=== PATIENT | female | born 1995 | race Caucasian/White ===

== ENCOUNTER 2017-08-09 02:18 | Inpatient (IN) | payer OTHER ==
[2017-08-09] MEDS ORDERED: LACTATED RINGERS 1,000 ML IV ONE (02:32)
[2017-08-09 02:56] LABS: Bilirubin,Urine NEG (Negative); Blood,Urine SM (Negative); Ketones,Urine NEG (Negative); Leukocyte Esterase,Urine NEG (Negative); Mucus,Urine FEW /HPF; Nitrite,Urine NEG (Negative); Protein,Urine <15 mg/dL mg/dL (Negative); Urobilinogen,Urine < 2.0 mg/dL (<2.0)
--- NOTE | 2017-08-09 03:09 | History and Physical Report ---
History of Present Illness Date of examination: 08/09/17 Chief complaint: Painless vaginal bleeding History of present illness: 21-year-old at 26+4 weeks presents with above complaint, she is a patient of [facility]. Patient speaks Niuean only, history with the help of motor vehicle parts interpreter. Essential history is sudden onset of painless vaginal bleeding ~ 30 minutes to an hour ago, no contractions no prior sexual intercourse of any kind. 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 denies: smoking, alcohol abuse, prescription drug abuse, IV drug use - Obstetrical History Expected Date of Delivery: 11/11/17 Actual Gestation: 26 Week(s) 4 Day(s) : 1 Para: 0 Medications and Allergies Allergies Allergy/AdvReac Type Severity Reaction Status Date / Time No Known Allergies Allergy Verified 08/09/17 02:29 Active Meds: Active Medications Lactated Ringer's (Lactated Ringers) 1,000 mls @ 999 mls/hr IV BOLUS ONE Stop: 08/09/17 03:32 Last Admin: 08/09/17 02:45 Dose: 999 mls/hr Review of Systems Constitutional: no fever, no chills, no malaise Cardiovascular: no chest pain, no orthopnea, no palpitations, no syncope, no lightheadedness, no shortness of breath, no dyspnea on exertion, no high blood pressure Respiratory: no shortness of breath, no dyspnea on exertion Gastrointestinal: no abdominal pain, no nausea, no vomiting, no heartburn, no indigestion Genitourinary: vaginal bleeding, no vaginal discharge, no leakage of fluid - Vital Signs Vital signs: Vital Signs Pulse Pulse Ox 85 99 08/09/17 02:25 08/09/17 02:25 Temp Pulse Resp BP Pulse Ox 98.2 F 97 H 16 102/66 99 08/09/17 02:48 08/09/17 02:44 08/09/17 02:48 08/09/17 02:44 08/09/17 02:40 - Physical Exam Cardiovascular: Regular rate, Normal S1, Normal S2 Lungs: Positive: Clear to auscultation, Normal air movement Abdomen: Positive: normal appearance, soft. Negative: distention, tenderness, guarding, rigidity Genitourinary (Female): Positive: normal external genitalia Uterus: Positive: enlarged. Negative: tender Adnexa: both: normal Extremities: Positive: normal Results All other labs normal. Assessment and Plan A: 21-year-old at 26+4 with painless vaginal bleeding -Cat 1 tracing -No active bleeding noted on cursory exam -No contractions P: -Will obtain imaging studies -Obtain labs -IV access -Disposition after results available including possible steroid and magnesium - Patient Problems (1) 26 weeks gestation of Current Visit: Yes Status: Acute (2) Vaginal bleeding in Current Visit: Yes Status: Acute
[2017-08-09] MEDS ORDERED: MAGNESIUM SULFATE 4GM/100ML 4 GM/100 ML BAG IV ONE (03:29)
--- NOTE | 2017-08-09 03:37 | Event Note ---
Date: 08/09/17 Ultrasound exam completed. No placental abnormalities noted. Growth scan shows infant at 28+4 weeks gestation with an EFW 1273 g. Cervical length is 3.5 cm and infant in cephalic presentation. DARCI is 18.7 BPP is 8 out of 8 On cervical exam, patient still has significant amount of blood clots in the vaginal vault. I could not assess the cervical opening due to this In view of above, have decided to admit the patient, start Celestone course and magnesium neuro protection. Will place consult to MFM and audio visual equipment rental clerk.
[2017-08-09] MEDS: MAGNESIUM SULFATE 40GM/1000ML 40 GM/1,000 ML BAG IV SCH ×2 (04:22→23:29)
[2017-08-09 04:24] LABS: Hematocrit 31.6 % (30.3-42.9); Hemoglobin 10.7 gm/dl (10.1-14.3); Mean Corpuscular HGB Conc 34 % (30-34); Mean Corpuscular Hemoglobin 30 pg (28-32); Mean Corpuscular Volume 89 fl (79-97); Platelet Count 358 K/mm3 (140-440); Red Blood Count 3.57 M/mm3 (3.65-5.03); Red Cell Distribution Width 13.3 % (13.2-15.2); White Blood Count 10.4 K/mm3 (4.5-11.0)
[2017-08-09] MEDS: LACTATED RINGERS 1,000 ML IV SCH ×2 (04:25→19:35)
[2017-08-09] MEDS: CELESTONE SOLUSPAN IM SCH (04:34)
[2017-08-09 04:39] LABS: Urine Drugs of Abuse Note Disclamer
[2017-08-09] MEDS ORDERED: ZOFRAN IV PRN (05:42)
[2017-08-09] MEDS ORDERED: MYLICON PO PRN (05:42)
[2017-08-09 06:28] LABS: Anion Gap 18 mmol/L; BUN/Creatinine Ratio 10; Blood Urea Nitrogen 3 mg/dL (7-17); Calcium 8.8 mg/dL (8.4-10.2); Carbon Dioxide 23 mmol/L (22-30); Chloride 103.9 mmol/L (98-107); Glucose 92 mg/dL (65-100); Potassium 4.6 mmol/L (3.6-5.0); Sodium 140 mmol/L (137-145)
[2017-08-09] MEDS: TYLENOL PO PRN ×2 (06:31→23:31)
--- NOTE | 2017-08-09 08:03 | Ultrasound Report ---
ULTRASOUND BIOPHYSICAL PROFILE: History: well being Technique: Transabdominal ultrasound with Doppler interrogation. 2 - breathing movements 2 - movements 2 - posture and tone 2 - Qualitative amniotic fluid volume 8 - TOTAL SCORE OF POSSIBLE 8 Heart Rate (bpm) 133
--- NOTE | 2017-08-09 08:06 | Ultrasound Report ---
OB ULTRASOUND History: well-being, evaluate amniotic fluid and placenta Technique: Transabdominal ultrasound with Doppler interrogation. Gestation: Single Position: Cephalic Amniotic Fluid: Normal DARCI = 18.7 cm Placenta: Left lateral Placental Grade: 1 Heart Rate: 140 BPM Cervical length: 3.5 cm (Normal > 3 cm) NEUROANATOMY VISUALIZED: Choroid Plexus Cisterna Magnum Cerebellum Lateral Ventricle ANATOMY VISUALIZED: Stomach Kidneys Bladder Diaphragm 4 Chamber Heart Heart 3 Vessel Cord Abd. Cord Insert SPINE VISUALIZED: Longitudinal Transverse BPD: 7.1 cm = 28 w 4 d HC: 25.7 cm = 28 w 0 d AC: 25.0 cm = 29 w 2 d FL: 5.3 cm = 28 w 2 d HC/AC Ratio: 1.03 Cephalic Index: 83 Estimated Weight: 1273 grams LMP: Uncertain Clinical age = w d EDC: US Gest. Age = 28 w 4 d EDC: 10/28/17 Impression: No acute abnormality detected.
--- NOTE | 2017-08-09 09:03 | Progress Note ---
Subjective - Subjective Date of service: 08/09/17 Principal diagnosis: vaginal bleeding at 26 weeks Interval history: Patient is a 21-year-old at 26+4 weeks who was admitted for painless vaginal bleeding. She is a patient of [facility]. Patient speaks Setswana only. As per the patient, the bleeding started suddenly last night about an hour before her presentation to the hospital. She denies any contractions, fluid leakage, or prior sexual intercourse. She was started on Magnesium and steroid. This AM, she denies any bleeding or pain. Vitals: T98.5F, HR 100, BP100/60, RR 20 Abd: soft, NT, gravid. Uterus: non tender. Pelvic: deferred. FHT: 140's bpm Sonogram: normal placenta, no previa. labs H/H: 10.7/31.6 A/P: SIuP at 26 weeks and 4 days with painless vaginal bleeding. Pt is stable. FHT: CAT 1 for gest age. Will continue Mg sulfate and next steroid dose tomorrow. Contine FHT and toco monitoring. Monitor for vaginal bleeding. APA consult today. Objective - Vital Signs Vital Signs: Vital Signs - 12hr 08/09/17 08/09/17 08/09/17 02:25 02:30 02:35 Temperature Pulse Rate 85 85 90 Respiratory Rate Blood Pressure Blood Pressure [Right] O2 Sat by Pulse 99 97 98 Oximetry 08/09/17 08/09/17 08/09/17 02:40 02:44 02:48 Temperature 98.2 F Pulse Rate 93 H 97 H Respiratory 16 Rate Blood Pressure 102/66 Blood Pressure [Right] O2 Sat by Pulse 99 Oximetry 08/09/17 08/09/17 08/09/17 03:08 03:13 03:18 Temperature Pulse Rate 86 81 85 Respiratory Rate Blood Pressure Blood Pressure [Right] O2 Sat by Pulse 97 98 99 Oximetry 08/09/17 08/09/17 08/09/17 03:23 03:28 03:34 Temperature Pulse Rate 82 89 85 Respiratory Rate Blood Pressure Blood Pressure [Right] O2 Sat by Pulse 98 97 99 Oximetry 08/09/17 08/09/17 08/09/17 03:39 04:04 04:09 Temperature Pulse Rate 83 88 96 H Respiratory Rate Blood Pressure 108/68 110/71 Blood Pressure [Right] O2 Sat by Pulse 97 Oximetry 08/09/17 08/09/17 08/09/17 04:11 04:14 04:19 Temperature 99.0 F Pulse Rate 100 H 106 H Respiratory 18 Rate Blood Pressure 112/69 119/66 Blood Pressure [Right] O2 Sat by Pulse Oximetry 08/09/17 08/09/17 08/09/17 04:24 04:29 04:34 Temperature Pulse Rate 100 H 97 H 93 H Respiratory Rate Blood Pressure 111/64 112/67 107/66 Blood Pressure [Right] O2 Sat by Pulse Oximetry 08/09/17 08/09/17 08/09/17 05:22 05:27 05:32 Temperature Pulse Rate 92 H 95 H 96 H Respiratory Rate Blood Pressure Blood Pressure [Right] O2 Sat by Pulse 97 97 97 Oximetry 08/09/17 08/09/17 08/09/17 05:37 05:38 05:42 Temperature Pulse Rate 97 H 93 H 94 H Respiratory Rate Blood Pressure 105/62 Blood Pressure [Right] O2 Sat by Pulse 98 97 Oximetry 08/09/17 08/09/17 08/09/17 05:47 05:52 05:57 Temperature Pulse Rate 91 H 101 H 93 H Respiratory Rate Blood Pressure Blood Pressure [Right] O2 Sat by Pulse 98 97 97 Oximetry 08/09/17 08/09/17 08/09/17 06:02 06:07 06:12 Temperature Pulse Rate 100 H 92 H 91 H Respiratory Rate Blood Pressure Blood Pressure [Right] O2 Sat by Pulse 97 97 97 Oximetry 08/09/17 08/09/17 08/09/17 06:17 06:22 06:27 Temperature Pulse Rate 86 95 H 97 H Respiratory Rate Blood Pressure Blood Pressure [Right] O2 Sat by Pulse 96 97 97 Oximetry 08/09/17 08/09/17 08/09/17 06:31 06:32 06:37 Temperature Pulse Rate 92 H 92 H Respiratory 18 Rate Blood Pressure Blood Pressure [Right] O2 Sat by Pulse 98 97 Oximetry 08/09/17 08/09/17 08/09/17 06:38 06:42 06:47 Temperature Pulse Rate 93 H 94 H 95 H Respiratory Rate Blood Pressure 102/63 Blood Pressure [Right] O2 Sat by Pulse 97 97 Oximetry 08/09/17 08/09/17 08/09/17 06:52 06:57 07:02 Temperature Pulse Rate 95 H 96 H 93 H Respiratory Rate Blood Pressure Blood Pressure [Right] O2 Sat by Pulse 97 96 96 Oximetry 08/09/17 08/09/17 08/09/17 07:07 07:12 07:17 Temperature Pulse Rate 99 H 96 H 98 H Respiratory Rate Blood Pressure Blood Pressure [Right] O2 Sat by Pulse 97 96 96 Oximetry 08/09/17 08/09/17 08/09/17 07:22 07:27 07:32 Temperature Pulse Rate 103 H 97 H 97 H Respiratory Rate Blood Pressure Blood Pressure [Right] O2 Sat by Pulse 96 96 97 Oximetry 08/09/17 08/09/17 08/09/17 07:37 07:38 07:42 Temperature Pulse Rate 98 H 102 H 97 H Respiratory Rate Blood Pressure 100/56 Blood Pressure [Right] O2 Sat by Pulse 96 96 Oximetry 08/09/17 08/09/17 08/09/17 07:47 07:52 07:55 Temperature 98.5 F Pulse Rate 98 H 97 H 94 H Respiratory 14 Rate Blood Pressure Blood Pressure 100/60 [Right] O2 Sat by Pulse 96 96 96 Oximetry 08/09/17 08/09/17 08/09/17 07:57 07:58 08:02 Temperature Pulse Rate 101 H 103 H 97 H Respiratory Rate Blood Pressure 100/60 Blood Pressure [Right] O2 Sat by Pulse 97 96 Oximetry 08/09/17 08/09/17 08/09/17 08:07 08:12 08:17 Temperature Pulse Rate 98 H 100 H 100 H Respiratory Rate Blood Pressure Blood Pressure [Right] O2 Sat by Pulse 96 96 97 Oximetry 08/09/17 08/09/17 08/09/17 08:22 08:27 08:32 Temperature Pulse Rate 104 H 101 H 102 H Respiratory Rate Blood Pressure Blood Pressure [Right] O2 Sat by Pulse 97 96 97 Oximetry 08/09/17 08/09/17 08/09/17 08:37 08:38 08:42 Temperature Pulse Rate 101 H 93 H 97 H Respiratory Rate Blood Pressure 103/62 Blood Pressure [Right] O2 Sat by Pulse 97 97 Oximetry 08/09/17 08/09/17 08/09/17 08:47 08:52 08:57 Temperature Pulse Rate 102 H 98 H 112 H Respiratory Rate Blood Pressure Blood Pressure [Right] O2 Sat by Pulse 95 96 97 Oximetry 08/09/17 09:02 Temperature Pulse Rate 100 H Respiratory Rate Blood Pressure Blood Pressure [Right] O2 Sat by Pulse 97 Oximetry - Labs Labs: Abnormal Labs 08/09/17 08/09/17 08/09/17 02:45 02:45 05:12 RBC 3.57 L BUN 3 L Creatinine 0.3 L Magnesium 1.50 L 08/09/17 05:12 RBC BUN Creatinine Magnesium 4.10 H Laboratory Results - last 24 hr 08/09/17 08/09/17 08/09/17 02:35 02:45 02:45 WBC 10.4 RBC 3.57 L Hgb 10.7 Hct 31.6 MCV 89 MCH 30 MCHC 34 RDW 13.3 Plt Count 358 Sodium Potassium Chloride Carbon Dioxide Anion Gap BUN Creatinine Estimated GFR BUN/Creatinine Ratio Glucose Gest Glucose Tolerance Calcium Magnesium Urine Color Yellow Urine Turbidity Clear Urine pH 6.0 Ur Specific [place] 1.009 Urine Protein <15 mg/dl Urine Glucose (UA) Neg Urine Ketones Neg Urine Blood Sm Urine Nitrite Neg Urine Bilirubin Neg Urine Urobilinogen < 2.0 Ur Leukocyte Esterase Neg Urine WBC (Auto) 3.0 Urine RBC (Auto) 1.0 U Epithel Cells (Auto) 1.0 Amorphous Crystals Few Urine Mucus Few Urine Opiates Screen Urine Methadone Screen Ur Barbiturates Screen Ur Phencyclidine Scrn Ur Amphetamines Screen U Benzodiazepines Scrn Urine Cocaine Screen U Marijuana (THC) Screen Drugs of Abuse Note Blood Type B POSITIVE 08/09/17 08/09/17 08/09/17 02:45 03:42 04:25 WBC RBC Hgb Hct MCV MCH MCHC RDW Plt Count Sodium Potassium Chloride Carbon Dioxide Anion Gap BUN Creatinine Estimated GFR BUN/Creatinine Ratio Glucose Gest Glucose Tolerance Calcium Magnesium 1.50 L Urine Color Urine Turbidity Urine pH Ur Specific [place] Urine Protein Urine Glucose (UA) Urine Ketones Urine Blood Urine Nitrite Urine Bilirubin Urine Urobilinogen Ur Leukocyte Esterase Urine WBC (Auto) Urine RBC (Auto) U Epithel Cells (Auto) Amorphous Crystals Urine Mucus Urine Opiates Screen Presumptive negative Urine Methadone Screen Presumptive negative Ur Barbiturates Screen Presumptive negative Ur Phencyclidine Scrn Presumptive negative Ur Amphetamines Screen Presumptive negative U Benzodiazepines Scrn Presumptive negative Urine Cocaine Screen Presumptive negative U Marijuana (THC) Screen Presumptive negative Drugs of Abuse Note Disclamer Blood Type 08/09/17 08/09/17 05:12 05:12 WBC RBC Hgb Hct MCV MCH MCHC RDW Plt Count Sodium 140 Potassium 4.6 Chloride 103.9 Carbon Dioxide 23 Anion Gap 18 BUN 3 L Creatinine 0.3 L Estimated GFR > 60 BUN/Creatinine Ratio 10 Glucose 92 Gest Glucose Tolerance Calcium 8.8 Magnesium 4.10 H Urine Color Urine Turbidity Urine pH Ur Specific [place] Urine Protein Urine Glucose (UA) Urine Ketones Urine Blood Urine Nitrite Urine Bilirubin Urine Urobilinogen Ur Leukocyte Esterase Urine WBC (Auto) Urine RBC (Auto) U Epithel Cells (Auto) Amorphous Crystals Urine Mucus Urine Opiates Screen Urine Methadone Screen Ur Barbiturates Screen Ur Phencyclidine Scrn Ur Amphetamines Screen U Benzodiazepines Scrn Urine Cocaine Screen U Marijuana (THC) Screen Drugs of Abuse Note Blood Type
[2017-08-09] MEDS ORDERED: CELESTONE SOLUSPAN IM SCH (10:00)
[2017-08-09] MEDS: PRENATAL VITAMIN PO SCH (10:06)
--- NOTE | 2017-08-09 12:01 | Consultation ---
Addendum entered and electronically signed by KARISSA TAMAYO NP 08/09/17 12:34: Language Line utilizied Addendum entered and electronically signed by KARISSA TAMAYO NP 08/09/17 12:34: Original Note: History of Present Illness Reason for consult: other (Patient is at 26.4 weeks with JONI of 11/11/17. Patient was admitted with vaginal bleeding this am . Reported suden onset of painless vaginal bleeding. Denies contractions , coitus, and vaginal coitus . Reports positive movement. In addition patient denies recent vaginal bleeding . 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, gonorrhea, hepatitis B, hepatitis C, herpes, HIV , syphilis, trichomonas - Obstetrical History : 1 Medications and Allergies Allergies Allergy/AdvReac Type Severity Reaction Status Date / Time No Known Allergies Allergy Verified 08/09/17 02:29 Home Medications Medication Instructions Recorded Confirmed Last Taken Type Vit-Fe Fumar-FA [ 1 tab PO QDAY 08/09/17 08/09/17 Unknown History Vitamin] Active Meds: Active Medications Acetaminophen (Tylenol) 650 mg PO Q4H PRN PRN Reason: Pain MILD(1-3)/Fever >100.5/MORENO Last Admin: 08/09/17 06:31 Dose: 650 mg Betamethasone Acet/Betameth SodPhos (Celestone Soluspan) 12 mg IM Q24H ANALI Stop: 08/10/17 04:04 Last Admin: 08/09/17 04:34 Dose: 12 mg Docusate Sodium (Colace) 100 mg PO Q12H PRN PRN Reason: Constipation Lactated Ringer's (Lactated Ringers) 1,000 mls @ 125 mls/hr IV DIRECT ANALI Last Admin: 08/09/17 04:25 Dose: 75 mls/hr Magnesium Sulfate (Magnesium Sulfate 40gm/1000ml) 40 gm in 1,000 mls @ 50 mls/ hr IV TITR ANALI PRN Reason: 2 GM/HR Last Admin: 08/09/17 04:22 Dose: 2 gm/hr, 50 mls/hr Multivitamins/Iron/Calcium ( Vitamin) 1 each PO QDAY ANALI Last Admin: 08/09/17 10:06 Dose: 1 each Ondansetron HCl (Zofran) 4 mg IV Q6H PRN PRN Reason: Nausea And Vomiting Simethicone (Mylicon) 80 mg PO Q6H PRN PRN Reason: Gas pain Review of Systems Constitutional: no fever Eyes: deferred Ears, nose, mouth and throat: deferred Cardiovascular: no rapid/irregular heart beat, no syncope, no lightheadedness, no shortness of breath Respiratory: no shortness of breath Gastrointestinal: no abdominal pain, no indigestion Genitourinary: no vaginal bleeding (no recent compliants of vaginal bleeding ), no vaginal discharge, no leakage of fluid, no pelvic pain, no genital sores, no contractions Rectal Exam: deferred Integumentary: no rash Neurological: no headaches Hematologic/Lymphatic: no easy bleeding - Vital Signs Vital signs: Vital Signs Pulse Pulse Ox 85 99 08/09/17 02:25 08/09/17 02:25 Temp Pulse Resp BP Pulse Ox 98.5 F 101 H 14 104/65 97 08/09/17 07:55 08/09/17 11:57 08/09/17 07:55 08/09/17 11:38 08/09/17 11:57 - Physical Exam Breasts: Positive: deferred Cardiovascular: Regular rate Lungs: Positive: Normal air movement Abdomen: Negative: tenderness, guarding Genitourinary (Female): Positive: other (hernández @ BS + urine output ) Cervix: Positive: other (deferred vaginal exam ) Uterus: Positive: other (gravid). Negative: tender Extremities: Positive: normal - Obstetrical FHR: category 1 (for 26 weeks gestation ) Uterine Contraction Monitor Mode: External Uterine Contraction Pattern: Absent Uterine Tone Measurement Phase: Resting (soft) Results Result Diagrams: 08/09/17 02:45 08/09/17 05:12 Abnormal lab results 08/09/17 08/09/17 08/09/17 Range/Units 02:45 02:45 05:12 RBC 3.57 L (3.65-5.03) M/mm3 BUN 3 L (7-17) mg/dL Creatinine 0.3 L (0.7-1.2) mg/dL Magnesium 1.50 L (1.7-2.3) mg/dL 08/09/17 Range/Units 05:12 RBC (3.65-5.03) M/mm3 BUN (7-17) mg/dL Creatinine (0.7-1.2) mg/dL Magnesium 4.10 H (1.7-2.3) mg/dL All other labs normal. Ultrasound: report reviewed (08/09/17 [facility] 26.4 weeks - EFW 1273 gm 28.4 weeks AUA with JONI of 10/28/17 vtx cervical length of 3.5 cm DARCI 18.7 cm Placenta - left lateral with placental grage of I Impression - "No acute abnormality detected") Assessment and Plan A: - IUP 26.4 weeks - Reported painless vaginal bleeding earlier this am - No Active bleeding - ABD NT - Cat 1 tracing for EGA with no contractions - Mild anemia noted - Stable pulse - MgSO for neuroprotection in progress - BMZ for FLM in progress - Placenta - Grade I with no previa P: - Remain for inpatient for management - MgSO per protocol - Complete BMZ - Monitor for active bleeding and contractions - Disposition after completion of steroid and magnesium by Dr. Horowitz - JONI per [facility] U/S 10/28/17 -Obtain PNR document JONI
[2017-08-10] MEDS: CELESTONE SOLUSPAN IM SCH (04:40)
[2017-08-10] MEDS: LACTATED RINGERS 1,000 ML IV SCH (06:20)
--- NOTE | 2017-08-10 08:43 | Progress Note ---
Subjective - Subjective Date of service: 08/10/17 Principal diagnosis: vaginal bleeding at 26 weeks Interval history: Patient is a 21-year-old at 26+5 weeks who was admitted for painless vaginal bleeding yesterday. She is a patient of [facility]. Patient speaks Yi only. As per the patient, the bleeding started suddenly the night before, about an hour before her admission to the hospital. She denied any contractions, fluid leakage, or prior sexual intercourse. She was started on Magnesium and steroid. Steroid was completed this AM. This AM, she denies any bleeding or pain. Vitals: T98.9F, HR 100, BP93/51, RR 20 Abd: soft, NT, gravid. Uterus: non tender. Pelvic: deferred. FHT: 140's bpm Sonogram: normal placenta, no previa. labs H/H: 10.7/31.6 A/P: SIUP at 26 weeks and 5 days with painless vaginal bleeding. Previa was ruled out. Pt is stable. FHT: CAT 1 for gest age. [facility] consult done. Will continue Mg sulfate Continue FHT and toco monitoring. Monitor for vaginal bleeding. Objective - Vital Signs Vital Signs: Vital Signs - 12hr 08/09/17 08/09/17 08/09/17 20:47 20:52 20:57 Temperature Pulse Rate 112 H 108 H 107 H Respiratory Rate Blood Pressure Blood Pressure [Right] O2 Sat by Pulse 96 96 96 Oximetry 08/09/17 08/09/17 08/09/17 21:02 21:07 21:12 Temperature Pulse Rate 99 H 104 H 108 H Respiratory Rate Blood Pressure Blood Pressure [Right] O2 Sat by Pulse 96 96 96 Oximetry 08/09/17 08/09/17 08/09/17 21:17 21:22 21:27 Temperature Pulse Rate 106 H 112 H 105 H Respiratory Rate Blood Pressure Blood Pressure [Right] O2 Sat by Pulse 96 96 96 Oximetry 08/09/17 08/09/17 08/09/17 21:32 21:37 21:38 Temperature Pulse Rate 108 H 102 H 98 H Respiratory Rate Blood Pressure 102/59 Blood Pressure [Right] O2 Sat by Pulse 95 96 Oximetry 08/09/17 08/09/17 08/09/17 21:42 21:47 21:52 Temperature Pulse Rate 99 H 103 H 103 H Respiratory Rate Blood Pressure Blood Pressure [Right] O2 Sat by Pulse 96 96 96 Oximetry 08/09/17 08/09/17 08/09/17 21:57 22:02 22:07 Temperature Pulse Rate 104 H 112 H 107 H Respiratory Rate Blood Pressure Blood Pressure [Right] O2 Sat by Pulse 96 96 96 Oximetry 08/09/17 08/09/17 08/09/17 22:12 22:17 22:22 Temperature Pulse Rate 109 H 108 H 105 H Respiratory Rate Blood Pressure Blood Pressure [Right] O2 Sat by Pulse 96 96 96 Oximetry 08/09/17 08/09/17 08/09/17 22:27 22:32 22:37 Temperature Pulse Rate 107 H 110 H 106 H Respiratory Rate Blood Pressure Blood Pressure [Right] O2 Sat by Pulse 96 95 96 Oximetry 08/09/17 08/09/17 08/09/17 22:38 22:42 22:47 Temperature Pulse Rate 103 H 107 H 104 H Respiratory Rate Blood Pressure 106/63 Blood Pressure [Right] O2 Sat by Pulse 96 96 Oximetry 08/09/17 08/09/17 08/09/17 22:52 22:57 23:02 Temperature Pulse Rate 107 H 102 H 104 H Respiratory Rate Blood Pressure Blood Pressure [Right] O2 Sat by Pulse 96 96 95 Oximetry 08/09/17 08/09/17 08/09/17 23:07 23:12 23:17 Temperature Pulse Rate 101 H 105 H 104 H Respiratory Rate Blood Pressure Blood Pressure [Right] O2 Sat by Pulse 96 96 96 Oximetry 08/09/17 08/09/17 08/09/17 23:22 23:27 23:31 Temperature Pulse Rate 107 H 105 H Respiratory 18 Rate Blood Pressure Blood Pressure [Right] O2 Sat by Pulse 96 96 Oximetry 08/09/17 08/09/17 08/09/17 23:32 23:35 23:37 Temperature Pulse Rate 104 H 103 H 104 H Respiratory Rate Blood Pressure 111/66 Blood Pressure [Right] O2 Sat by Pulse 97 96 Oximetry 08/09/17 08/09/17 08/09/17 23:38 23:42 23:47 Temperature 98.4 F Pulse Rate 99 H 101 H Respiratory 18 Rate Blood Pressure Blood Pressure [Right] O2 Sat by Pulse 97 97 Oximetry 08/09/17 08/09/17 08/10/17 23:52 23:57 00:02 Temperature Pulse Rate 99 H 99 H 102 H Respiratory Rate Blood Pressure Blood Pressure [Right] O2 Sat by Pulse 96 96 96 Oximetry 08/10/17 08/10/17 08/10/17 00:07 00:12 00:17 Temperature Pulse Rate 100 H 102 H 102 H Respiratory Rate Blood Pressure Blood Pressure [Right] O2 Sat by Pulse 96 95 95 Oximetry 08/10/17 08/10/17 08/10/17 00:22 00:27 00:32 Temperature Pulse Rate 105 H 103 H 104 H Respiratory Rate Blood Pressure Blood Pressure [Right] O2 Sat by Pulse 95 95 95 Oximetry 08/10/17 08/10/17 08/10/17 00:35 00:37 00:42 Temperature Pulse Rate 105 H 110 H 101 H Respiratory Rate Blood Pressure 106/62 Blood Pressure [Right] O2 Sat by Pulse 96 95 Oximetry 08/10/17 08/10/17 08/10/17 00:47 00:50 00:52 Temperature Pulse Rate 104 H 103 H 100 H Respiratory Rate Blood Pressure Blood Pressure [Right] O2 Sat by Pulse 95 94 95 Oximetry 08/10/17 08/10/17 08/10/17 00:57 01:02 01:07 Temperature Pulse Rate 103 H 108 H 109 H Respiratory Rate Blood Pressure Blood Pressure [Right] O2 Sat by Pulse 95 96 96 Oximetry 08/10/17 08/10/17 08/10/17 01:12 01:17 01:22 Temperature Pulse Rate 107 H 107 H 103 H Respiratory Rate Blood Pressure Blood Pressure [Right] O2 Sat by Pulse 96 95 96 Oximetry 08/10/17 08/10/17 08/10/17 01:27 01:32 01:35 Temperature Pulse Rate 105 H 103 H 100 H Respiratory Rate Blood Pressure 102/57 Blood Pressure [Right] O2 Sat by Pulse 95 95 94 Oximetry 08/10/17 08/10/17 08/10/17 01:37 01:42 01:47 Temperature Pulse Rate 104 H 102 H 101 H Respiratory Rate Blood Pressure Blood Pressure [Right] O2 Sat by Pulse 96 95 95 Oximetry 08/10/17 08/10/17 08/10/17 01:52 01:56 01:57 Temperature Pulse Rate 100 H 106 H 105 H Respiratory Rate Blood Pressure Blood Pressure [Right] O2 Sat by Pulse 95 94 95 Oximetry 08/10/17 08/10/17 08/10/17 02:02 02:07 02:10 Temperature Pulse Rate 105 H 104 H 105 H Respiratory Rate Blood Pressure Blood Pressure [Right] O2 Sat by Pulse 95 95 94 Oximetry 08/10/17 08/10/17 08/10/17 02:12 02:17 02:22 Temperature Pulse Rate 100 H 100 H 102 H Respiratory Rate Blood Pressure Blood Pressure [Right] O2 Sat by Pulse 95 95 95 Oximetry 08/10/17 08/10/17 08/10/17 02:27 02:32 02:35 Temperature Pulse Rate 100 H 104 H 101 H Respiratory Rate Blood Pressure 103/59 Blood Pressure [Right] O2 Sat by Pulse 95 95 Oximetry 08/10/17 08/10/17 08/10/17 02:37 02:42 02:43 Temperature Pulse Rate 104 H 98 H 98 H Respiratory Rate Blood Pressure Blood Pressure [Right] O2 Sat by Pulse 94 95 94 Oximetry 08/10/17 08/10/17 08/10/17 02:47 02:52 02:57 Temperature Pulse Rate 100 H 99 H 100 H Respiratory Rate Blood Pressure Blood Pressure [Right] O2 Sat by Pulse 95 95 95 Oximetry 08/10/17 08/10/17 08/10/17 03:02 03:07 03:12 Temperature Pulse Rate 109 H 96 H 97 H Respiratory Rate Blood Pressure Blood Pressure [Right] O2 Sat by Pulse 96 95 94 Oximetry 08/10/17 08/10/17 08/10/17 03:17 03:22 03:27 Temperature Pulse Rate 103 H 105 H 102 H Respiratory Rate Blood Pressure Blood Pressure [Right] O2 Sat by Pulse 97 96 95 Oximetry 08/10/17 08/10/17 08/10/17 03:31 03:32 03:35 Temperature Pulse Rate 108 H 107 H 102 H Respiratory Rate Blood Pressure 105/64 Blood Pressure [Right] O2 Sat by Pulse 94 96 Oximetry 08/10/17 08/10/17 08/10/17 03:37 03:42 03:47 Temperature Pulse Rate 102 H 107 H 102 H Respiratory Rate Blood Pressure Blood Pressure [Right] O2 Sat by Pulse 96 95 95 Oximetry 08/10/17 08/10/17 08/10/17 03:52 03:53 03:57 Temperature Pulse Rate 105 H 98 H 103 H Respiratory Rate Blood Pressure Blood Pressure [Right] O2 Sat by Pulse 96 94 96 Oximetry 08/10/17 08/10/17 08/10/17 04:02 04:07 04:12 Temperature Pulse Rate 105 H 101 H 101 H Respiratory Rate Blood Pressure Blood Pressure [Right] O2 Sat by Pulse 95 95 96 Oximetry 08/10/17 08/10/17 08/10/17 04:17 04:22 04:27 Temperature Pulse Rate 109 H 105 H 103 H Respiratory Rate Blood Pressure Blood Pressure [Right] O2 Sat by Pulse 95 94 96 Oximetry 08/10/17 08/10/17 08/10/17 04:32 04:35 04:37 Temperature 98.0 F Pulse Rate 105 H 103 H 100 H Respiratory 16 Rate Blood Pressure 102/61 Blood Pressure [Right] O2 Sat by Pulse 96 94 96 Oximetry 08/10/17 08/10/17 08/10/17 04:42 04:47 04:52 Temperature Pulse Rate 105 H 105 H 108 H Respiratory Rate Blood Pressure Blood Pressure [Right] O2 Sat by Pulse 96 96 96 Oximetry 08/10/17 08/10/17 08/10/17 04:57 05:02 05:07 Temperature Pulse Rate 103 H 99 H 100 H Respiratory Rate Blood Pressure Blood Pressure [Right] O2 Sat by Pulse 96 96 96 Oximetry 08/10/17 08/10/17 08/10/17 05:12 05:17 05:22 Temperature Pulse Rate 102 H 100 H 100 H Respiratory Rate Blood Pressure Blood Pressure [Right] O2 Sat by Pulse 96 95 96 Oximetry 08/10/17 08/10/17 08/10/17 05:27 05:32 05:36 Temperature Pulse Rate 98 H 98 H 98 H Respiratory Rate Blood Pressure 99/62 Blood Pressure [Right] O2 Sat by Pulse 95 95 Oximetry 08/10/17 08/10/17 08/10/17 05:37 05:42 05:46 Temperature Pulse Rate 101 H 97 H 101 H Respiratory Rate Blood Pressure Blood Pressure [Right] O2 Sat by Pulse 96 95 94 Oximetry 08/10/17 08/10/17 08/10/17 05:47 05:52 05:55 Temperature Pulse Rate 100 H 100 H 99 H Respiratory Rate Blood Pressure Blood Pressure [Right] O2 Sat by Pulse 95 95 94 Oximetry 08/10/17 08/10/17 08/10/17 05:57 06:01 06:02 Temperature Pulse Rate 99 H 101 H 103 H Respiratory Rate Blood Pressure Blood Pressure [Right] O2 Sat by Pulse 95 94 95 Oximetry 08/10/17 08/10/17 08/10/17 06:07 06:12 06:17 Temperature Pulse Rate 103 H 103 H 102 H Respiratory Rate Blood Pressure Blood Pressure [Right] O2 Sat by Pulse 94 94 94 Oximetry 08/10/17 08/10/17 08/10/17 06:22 06:24 06:27 Temperature Pulse Rate 101 H 102 H 110 H Respiratory Rate Blood Pressure Blood Pressure [Right] O2 Sat by Pulse 94 94 94 Oximetry 08/10/17 08/10/17 08/10/17 06:32 06:35 06:37 Temperature Pulse Rate 107 H 100 H 102 H Respiratory Rate Blood Pressure 100/56 Blood Pressure [Right] O2 Sat by Pulse 96 96 Oximetry 08/10/17 08/10/17 08/10/17 06:40 06:42 06:47 Temperature Pulse Rate 100 H 99 H 100 H Respiratory Rate Blood Pressure Blood Pressure [Right] O2 Sat by Pulse 94 95 95 Oximetry 08/10/17 08/10/17 08/10/17 06:52 06:57 06:58 Temperature Pulse Rate 102 H 99 H 100 H Respiratory Rate Blood Pressure Blood Pressure [Right] O2 Sat by Pulse 95 95 94 Oximetry 08/10/17 08/10/17 08/10/17 07:02 07:05 07:07 Temperature Pulse Rate 101 H 112 H 108 H Respiratory Rate Blood Pressure Blood Pressure [Right] O2 Sat by Pulse 94 94 96 Oximetry 08/10/17 08/10/17 08/10/17 07:10 07:12 07:16 Temperature Pulse Rate 97 H 100 H 101 H Respiratory Rate Blood Pressure Blood Pressure [Right] O2 Sat by Pulse 94 94 94 Oximetry 08/10/17 08/10/17 08/10/17 07:17 07:22 07:27 Temperature Pulse Rate 102 H 103 H 102 H Respiratory Rate Blood Pressure Blood Pressure [Right] O2 Sat by Pulse 95 95 95 Oximetry 08/10/17 08/10/17 08/10/17 07:30 07:32 07:35 Temperature Pulse Rate 103 H 101 H 103 H Respiratory Rate Blood Pressure 93/51 Blood Pressure [Right] O2 Sat by Pulse 94 95 94 Oximetry 08/10/17 08/10/17 08/10/17 07:37 07:42 07:47 Temperature Pulse Rate 101 H 101 H 103 H Respiratory Rate Blood Pressure Blood Pressure [Right] O2 Sat by Pulse 95 95 95 Oximetry 08/10/17 08/10/17 08/10/17 07:52 07:53 07:57 Temperature Pulse Rate 102 H 103 H 102 H Respiratory Rate Blood Pressure Blood Pressure [Right] O2 Sat by Pulse 95 94 95 Oximetry 08/10/17 08/10/17 08/10/17 08:02 08:05 08:07 Temperature 98.9 F Pulse Rate 102 H 114 H 102 H Respiratory 18 Rate Blood Pressure Blood Pressure 93/51 [Right] O2 Sat by Pulse 95 96 95 Oximetry 08/10/17 08/10/17 08/10/17 08:12 08:14 08:17 Temperature Pulse Rate 102 H 100 H 100 H Respiratory Rate Blood Pressure Blood Pressure [Right] O2 Sat by Pulse 95 94 95 Oximetry 08/10/17 08/10/17 08/10/17 08:20 08:22 08:27 Temperature Pulse Rate 108 H 104 H 101 H Respiratory Rate Blood Pressure Blood Pressure [Right] O2 Sat by Pulse 94 95 93 Oximetry 08/10/17 08/10/17 08/10/17 08:32 08:35 08:37 Temperature Pulse Rate 106 H 104 H 102 H Respiratory Rate Blood Pressure 102/58 Blood Pressure [Right] O2 Sat by Pulse 95 94 95 Oximetry 08/10/17 08:42 Temperature Pulse Rate 109 H Respiratory Rate Blood Pressure Blood Pressure [Right] O2 Sat by Pulse 96 Oximetry - Labs Labs: Abnormal Labs 08/09/17 08/09/17 08/09/17 00:00 02:45 02:45 RBC 3.57 L BUN Creatinine Magnesium 4.80 H 1.50 L 08/09/17 08/09/17 08/09/17 05:12 05:12 12:05 RBC BUN 3 L Creatinine 0.3 L Magnesium 4.10 H 5.40 H 08/09/17 08/10/17 17:45 06:20 RBC BUN Creatinine Magnesium 5.50 H 5.70 H Laboratory Results - last 24 hr 08/09/17 08/09/17 08/09/17 00:00 12:05 17:45 Magnesium 4.80 H 5.40 H 5.50 H 08/10/17 06:20 Magnesium 5.70 H
[2017-08-10] MEDS: PRENATAL VITAMIN PO SCH (10:01)
[2017-08-10] MEDS: COLACE PO PRN (10:01)
--- NOTE | 2017-08-10 13:39 | Consultation ---
History of Present Illness Consult date: 08/10/17 Requesting physician: ROSEMARY COLVIN History of present illness: Danish Translation Utilized with Sujey From [facility] Patient reports no more vaginal bleeding Denies Contractions or leakage or abdominal pain S/P Steroids - Second shot given at around 4:20 am Currently on Mg US done EFW at 1273 grams - no mention of previa or abruption ------- Abd soft gravid NT Ext NT no edema ------ EFM 120-130 pos accels , no decels BPP 8/8 ------ Past History Past Medical History: no pertinent history Past Surgical History: no surgical history [employer] History: denies: chlamydia, gonorrhea, hepatitis B, hepatitis C, herpes, HIV , syphilis, trichomonas - Obstetrical History : 1 Medications and Allergies Allergies Allergy/AdvReac Type Severity Reaction Status Date / Time No Known Allergies Allergy Verified 08/09/17 02:29 Home Medications Medication Instructions Recorded Confirmed Last Taken Type Vit-Fe Fumar-FA [ 1 tab PO QDAY 08/09/17 08/09/17 Unknown History Vitamin] Active Meds: Active Medications Acetaminophen (Tylenol) 650 mg PO Q4H PRN PRN Reason: Pain MILD(1-3)/Fever >100.5/MORENO Last Admin: 08/09/17 23:31 Dose: 650 mg Docusate Sodium (Colace) 100 mg PO Q12H PRN PRN Reason: Constipation Last Admin: 08/10/17 10:01 Dose: 100 mg Lactated Ringer's (Lactated Ringers) 1,000 mls @ 125 mls/hr IV DIRECT ANALI Last Admin: 08/10/17 06:20 Dose: 75 mls/hr Magnesium Sulfate (Magnesium Sulfate 40gm/1000ml) 40 gm in 1,000 mls @ 50 mls/ hr IV TITR ANALI PRN Reason: 2 GM/HR Last Admin: 08/09/17 23:29 Dose: 2 gm/hr, 50 mls/hr Multivitamins/Iron/Calcium ( Vitamin) 1 each PO QDAY ANALI Last Admin: 08/10/17 10:01 Dose: 1 each Ondansetron HCl (Zofran) 4 mg IV Q6H PRN PRN Reason: Nausea And Vomiting Last Admin: 08/10/17 01:08 Dose: 4 mg Simethicone (Mylicon) 80 mg PO Q6H PRN PRN Reason: Gas pain - Vital Signs Vital signs: Vital Signs Pulse Pulse Ox 85 99 08/09/17 02:25 08/09/17 02:25 Temp Pulse Resp BP Pulse Ox 98.6 F 101 H 18 106/60 96 08/10/17 12:26 08/10/17 13:37 08/10/17 12:26 08/10/17 13:35 08/10/17 13:37 Results Result Diagrams: 08/09/17 02:45 08/09/17 05:12 Abnormal lab results 08/09/17 08/09/17 08/10/17 Range/Units 00:00 17:45 06:20 Magnesium 4.80 H 5.50 H 5.70 H (1.7-2.3) mg/dL 08/10/17 Range/Units 12:30 Magnesium 5.80 H (1.7-2.3) mg/dL All other labs normal. Assessment and Plan 1. [place] IUP at 26 5/7 weeks 2. Vag Bleeding - Resolved Recommendations: 1. DC Mg this evening if stable and no contractions 2. Continue hydration 3. Will consider discharge tomorrow if no bleeding x 48 hours 4. Follow up in 1 week for BPP US with [facility] 5. Danish Translation - Patient and FOC told restricted activity and pelvic rest 6. Call for Vaginal Bleeding or go back to hospital
[2017-08-11] MEDS: LACTATED RINGERS 1,000 ML IV SCH ×3 (05:01→19:14)
--- NOTE | 2017-08-11 08:37 | Progress Note ---
Subjective - Subjective Date of service: 08/11/17 Principal diagnosis: vaginal bleeding at 26 weeks Interval history: Patient is a 21-year-old at 26+6 weeks who was admitted for painless vaginal bleeding yesterday. She is a patient of [facility]. Patient speaks Georgian only. As per the patient, the bleeding started suddenly the night before her admission to the hospital. She denied any contractions, fluid leakage, or prior sexual intercourse. She was given Magnesium which was discontinued yesterday and celestone which was completed on 08/10. This AM, she c/o having mild darkish spotting and denies any pain. Vitals: T98.7F, HR 94, BP98/52, RR 18 Abd: soft, NT, gravid. Uterus: non tender. Pelvic: deferred. FHT: 140's bpm Sonogram: normal placenta, no previa. labs H/H: 10.7/31.6 A/P: SIUP at 26 weeks and 6 days with painless vaginal bleeding. Previa was ruled out. Pt is stable. FHT: CAT 1 for gest age. [facility] consult done. Will continue to observe Continue FHT and toco monitoring. Monitor for vaginal bleeding. Objective - Vital Signs Vital Signs: Vital Signs - 12hr 08/10/17 08/10/17 08/10/17 20:42 21:35 21:55 Temperature Pulse Rate 99 H 93 H 102 H Respiratory Rate Blood Pressure 106/58 100/56 Blood Pressure [Right] O2 Sat by Pulse 96 Oximetry 08/10/17 08/10/17 08/11/17 22:35 23:35 00:35 Temperature Pulse Rate 92 H 97 H 90 Respiratory Rate Blood Pressure 100/57 98/57 98/57 Blood Pressure [Right] O2 Sat by Pulse Oximetry 08/11/17 08/11/17 08/11/17 01:18 01:35 02:33 Temperature Pulse Rate 83 80 94 H Respiratory Rate Blood Pressure 96/52 93/51 96/51 Blood Pressure [Right] O2 Sat by Pulse Oximetry 08/11/17 08/11/17 08/11/17 02:35 03:35 04:35 Temperature Pulse Rate 85 80 80 Respiratory Rate Blood Pressure 94/50 91/53 90/54 Blood Pressure [Right] O2 Sat by Pulse Oximetry 10/08/11/17 08/11/17 05:35 06:35 07:35 Temperature Pulse Rate 81 78 88 Respiratory Rate Blood Pressure 80/44 89/54 98/56 Blood Pressure [Right] O2 Sat by Pulse Oximetry 08/11/17 08/11/17 08/11/17 08:02 08:04 08:05 Temperature 98.7 F Pulse Rate 98 H 96 H 95 H Respiratory 18 Rate Blood Pressure 98/52 Blood Pressure 98/52 [Right] O2 Sat by Pulse 96 96 Oximetry - Labs Labs: Abnormal Labs 08/09/17 08/09/17 08/09/17 00:00 02:45 02:45 RBC 3.57 L BUN Creatinine Magnesium 4.80 H 1.50 L 08/09/17 08/09/17 08/09/17 05:12 05:12 12:05 RBC BUN 3 L Creatinine 0.3 L Magnesium 4.10 H 5.40 H 08/09/17 08/10/17 08/10/17 17:45 06:20 12:30 RBC BUN Creatinine Magnesium 5.50 H 5.70 H 5.80 H Laboratory Results - last 24 hr 08/10/17 12:30 Magnesium 5.80 H
[2017-08-11] MEDS: COLACE PO PRN (10:14)
[2017-08-11] MEDS: PRENATAL VITAMIN PO SCH (10:14)
[2017-08-12] MEDS: LACTATED RINGERS 1,000 ML IV SCH (07:37)
[2017-08-12 07:42] VITALS: BP 94/50
[2017-08-12] MEDS: PRENATAL VITAMIN PO SCH (09:10)
--- NOTE | 2017-08-12 11:33 | Discharge Summary ---
Providers - Providers Date of Admission: 08/09/17 06:01 Date of discharge: 08/12/17 Attending physician: ROSEMARY COLVIN MD 08/09/17 03:32 Consult to Physician [CONS] Routine Consulting Provider: DAVID LUND Reason For Exam: Painless vaginal bleeding Place consult to:: ERIC Notified:: ANGELICA Phone number called:: [phone] Was contact made?: Yes If yes, spoke with:: ANGELICA Time called:: 08:45 08/09/17 03:40 Consult to Physician [CONS] Routine Consulting Provider: EBONY RICH Reason For Exam: Painless vaginal bleeding Place consult to:: ERIC Notified:: ANGELICA Phone number called:: [phone] Was contact made?: Yes If yes, spoke with:: ANGELICA Time called:: 08:30 Primary care physician: ROSEMARY COLVIN MD Plan - Provider Discharge Summary Additional instructions: [] Smoking cessation referral if applicable(refer to patient education folder for contact #) [] Refer to [facility]'s [facility] Booklet Call your doctor immediately for: * Fever > 100.5 * Heavy vaginal bleeding ( >1 pad per hour) * Severe persistent headache * Shortness of breath * Reddened, hot, painful area to leg or breast * Drainage or odor from incision. * Keep incision clean and dry at all times and follow doctor's instructions regarding bathing/showering - Follow up plan Follow up: ROSEMARY COLVIN MD [Primary Care Provider] - 7 Days
--- NOTE | 2017-08-12 11:35 | Progress Note ---
Subjective - Subjective Date of service: 08/12/17 Principal diagnosis: vaginal bleeding at 26 weeks Interval history: Patient is a 21-year-old at 27 weeks who was admitted for painless vaginal bleeding yesterday. She is a patient of [facility]. Patient speaks Italian only. As per the patient, the bleeding started suddenly the night before her admission to the hospital. She denied any contractions, fluid leakage, or prior sexual intercourse. She was given Magnesium which was discontinued yesterday and celestone which was completed on 08/10. This AM, she denies any bleeding or spotting for the past 2 days. She denies any pain. She has a mild vaginal discharge. Vitals: T98F, HR 94, BP97/52, RR 18 Abd: soft, NT, gravid. Uterus: non tender. Pelvic: deferred. FHT: 140's bpm Sonogram: normal placenta, no previa. labs H/H: 10.7/31.6 A/P: SIUP at 26 weeks and 6 days with painless vaginal bleeding. Previa was ruled out. Pt is stable. FHT: CAT 1 for gest age. [facility] consult done. Will d/c patient home today. Pt is to f/u in [facility] on TR. She is advised to call or return if she bleeds again. Flagyl given for BV. Objective - Vital Signs Vital Signs: Vital Signs - 12hr 08/12/17 08/12/17 08/12/17 07:18 07:23 07:28 Pulse Rate 65 72 78 Blood Pressure 89/52 O2 Sat by Pulse 96 95 95 Oximetry 08/12/17 08/12/17 08/12/17 07:33 07:38 07:43 Pulse Rate 78 73 74 Blood Pressure O2 Sat by Pulse 96 95 96 Oximetry 08/12/17 08/12/17 08/12/17 07:45 07:48 07:53 Pulse Rate 83 88 79 Blood Pressure 94/50 O2 Sat by Pulse 96 95 Oximetry 08/12/17 08/12/17 08/12/17 07:58 08:03 08:08 Pulse Rate 76 84 82 Blood Pressure O2 Sat by Pulse 95 96 96 Oximetry 08/12/17 08/12/17 08/12/17 08:13 08:18 08:25 Pulse Rate 79 83 89 Blood Pressure O2 Sat by Pulse 97 97 97 Oximetry 08/12/17 08/12/17 08/12/17 08:30 08:35 08:40 Pulse Rate 72 78 72 Blood Pressure O2 Sat by Pulse 97 97 97 Oximetry 08/12/17 08/12/17 08/12/17 08:45 08:50 08:56 Pulse Rate 84 71 82 Blood Pressure O2 Sat by Pulse 98 97 96 Oximetry 08/12/17 08/12/17 08/12/17 09:01 09:06 09:11 Pulse Rate 74 86 90 Blood Pressure O2 Sat by Pulse 97 98 99 Oximetry 08/12/17 08/12/17 08/12/17 09:16 09:21 09:26 Pulse Rate 85 88 88 Blood Pressure O2 Sat by Pulse 98 98 97 Oximetry 08/12/17 09:31 Pulse Rate 97 H Blood Pressure O2 Sat by Pulse 97 Oximetry - Labs Labs: Abnormal Labs 08/09/17 08/09/17 08/09/17 00:00 02:45 02:45 RBC 3.57 L BUN Creatinine Magnesium 4.80 H 1.50 L 08/09/17 08/09/17 08/09/17 05:12 05:12 12:05 RBC BUN 3 L Creatinine 0.3 L Magnesium 4.10 H 5.40 H 08/09/17 08/10/17 08/10/17 17:45 06:20 12:30 RBC BUN Creatinine Magnesium 5.50 H 5.70 H 5.80 H
--- NOTE | 2017-08-12 13:06 | Consultation ---
History of Present Illness Consult date: 08/11/17 Requesting physician: KAYY LOMAS Reason for consult: prematurity History of present illness: Patient is a 21 year old 26 week and 6 days admitted secondary painless vaginal bleeeding. She has received a course of betamethasone during this admission and bleeding seem to be subsiding. There are no indication of labor at the moment Documentation - information: Height 5 ft Medications and Allergies Allergies Allergy/AdvReac Type Severity Reaction Status Date / Time No Known Allergies Allergy Verified 08/09/17 02:29 Home Medications Medication Instructions Recorded Confirmed Last Taken Type Vit-Fe Fumar-FA [ 1 tab PO QDAY 08/09/17 08/09/17 Unknown History Vitamin] metroNIDAZOLE [Flagyl] 500 mg PO Q12HR 7 Days 08/12/17 Unknown Rx Active Meds: Active Medications Acetaminophen (Tylenol) 650 mg PO Q4H PRN PRN Reason: Pain MILD(1-3)/Fever >100.5/MORENO Last Admin: 08/09/17 23:31 Dose: 650 mg Docusate Sodium (Colace) 100 mg PO Q12H PRN PRN Reason: Constipation Last Admin: 08/11/17 10:14 Dose: 100 mg Docusate Sodium (Colace) 100 mg PO BID [facility] Last Admin: 08/12/17 11:57 Dose: 100 mg Lactated Ringer's (Lactated Ringers) 1,000 mls @ 125 mls/hr IV DIRECT ANALI Last Admin: 08/12/17 07:37 Dose: 75 mls/hr Multivitamins/Iron/Calcium ( Vitamin) 1 each PO QDAY [facility] Last Admin: 08/12/17 09:10 Dose: 1 each Ondansetron HCl (Zofran) 4 mg IV Q6H PRN PRN Reason: Nausea And Vomiting Last Admin: 08/10/17 01:08 Dose: 4 mg Simethicone (Mylicon) 80 mg PO Q6H PRN PRN Reason: Gas pain Exam Vital Signs Pulse Pulse Ox 85 99 08/09/17 02:25 08/09/17 02:25 Temp Pulse Resp BP Pulse Ox 98.8 F 97 H 18 94/50 97 08/11/17 15:53 08/12/17 09:31 08/11/17 15:53 08/12/17 07:45 08/12/17 09:31 Results - Laboratory Findings 08/09/17 02:45 08/09/17 05:12 Assessment and Plan Assessment: 26 week with painless vaginal bleeding The following issues were discussed with Ms Jeanine Irvin through an historical interpreter 1. Complications that may arise from prematurity at 26 weeks. Complictions discussed include, but not limited to, increased risk of respiratory distress syndrome, intraventricular hemorrhage, patent ductus arteriosus, periventricular leukomalacia, intravenous nutrition, central line, infection and jaundice 2. Attendance of the delivery by NICU team to provide resuscitation and care for the babies as needed this may include use of supplemental oxygen and assisted ventilation. 3. Admission of the babies to our NICU for stabilization and management Ms Irvin questions were answered and she promised o contact NICU team if she has any new question Total time spent doing the consult was 25 minutes - Patient Problems (1) 26 weeks gestation of Current Visit: Yes Status: Acute (2) Vaginal bleeding in Current Visit: Yes Status: Acute
[2017-08-12] MEDS ORDERED: COLACE PO SCH (22:00)
== END 2017-08-12 12:58 | disposition home or self-care (01) | DRG 782 ==
LOC: TRG 02:18 → LD 03:39 → TRG 06:01 → LD 06:01
PROVIDERS: ADMIT Obstetrics & Gynecology; ATTEND Obstetrics & Gynecology
DX: O46.92 Antepartum hemorrhage, unspecified, second trimester (principal); Z3A.26 26 weeks gestation of pregnancy
CPT/HCPCS: 36415; 76805; 76819; 80048; 80307; 81001; 82951; 83735; 85027; 86900; 86901; J0702; J2405; J3475; J7120

== ENCOUNTER 2017-08-13 07:20 | Inpatient (IN) | payer OTHER ==
[2017-08-13] MEDS ORDERED: LACTATED RINGERS 500 ML IV ONE (07:38)
[2017-08-13 07:55] LABS: Basophils % (Auto) 0.6 % (0.0-1.8); Eosinophils % (Auto) 1.2 % (0.0-4.3); Hematocrit 28.7 % (30.3-42.9); Hemoglobin 9.8 gm/dl (10.1-14.3); Mean Corpuscular HGB Conc 34 % (30-34); Mean Corpuscular Hemoglobin 30 pg (28-32); Mean Corpuscular Volume 89 fl (79-97); Platelet Count 346 K/mm3 (140-440); Red Blood Count 3.23 M/mm3 (3.65-5.03); Red Cell Distribution Width 13.4 % (13.2-15.2); White Blood Count 12.1 K/mm3 (4.5-11.0)
--- NOTE | 2017-08-13 09:33 | History and Physical Report ---
History of Present Illness Date of examination: 08/13/17 Date of admission: 08/13/2017 Chief complaint: SIUP at 27 weeks and 1 day with vaginal bleeding. History of present illness: Patient is a 21-year-old at 27 weeks and 1 day who presents to Labor and Delivery complaining of vaginal bleeding. She is a patient of [facility]. Patient speaks Occitan only. She states that she woke up at around 7 AM and feels blood coming from the vagina. She denies any fluid leakage or pain. She reports good movement. She denies having any recent sexual intercourse. She was admitted on 08/09 for vaginal bleeding and was admitted. Magnesium and celestone were given. The bleeding stopped after a few hours. She was discharged home yesterday after 3 days of observation with no bleeding. Her course has been unremarkable. PMH: denies PHS: denies Allergy: denies Social: Denies any smoking, ETOH, or IVDA. Fam Hx: denies Academic Hospitalist: unremarkable ObHx: Primigravida Physical Exam: Vitals: General: no acute distress. HEENT: normal. CVS: normal S1 S2. Breast: deferred. Abdomen: soft, no tenderness, uterus gravid 28 cm fundal height. Ext: no edema,. no calf TN, no Kevin's sign. Pelvic: Speculum: large clot in vaginal vault. No active bleeding, cervix 1 cm/ long/post. No lesion. No vaginal lesion or laceration. heart tones in the 140's, no deceleration. Assessment: 21 year old at 27 weeks and 1 day gestation in labor and vaginal bleeding. Celestone was completed 5 days ago. Plan: 1. Admit to Labor and Delivery. 2. Admitting labs. Iv hydration. IV antiboitics. 3. Magnesium sulfate. Monitor Mg level. 4. APA consult. 5. Bed rest. Past History Social history: , lives with family - Obstetrical History Expected Date of Delivery: 11/11/17 Actual Gestation: 27 Week(s) 1 Day(s) : 1 Para: 0 Medications and Allergies Allergies Allergy/AdvReac Type Severity Reaction Status Date / Time No Known Allergies Allergy Verified 08/09/17 02:29 Home Medications Medication Instructions Recorded Confirmed Last Taken Type Vit-Fe Fumar-FA [ 1 tab PO QDAY 08/09/17 08/09/17 Unknown History Vitamin] metroNIDAZOLE [Flagyl] 500 mg PO Q12HR 7 Days 08/12/17 Unknown Rx - Vital Signs Vital signs: Vital Signs Pulse Pulse Ox 81 98 08/13/17 07:25 08/13/17 07:25 Temp Pulse Resp BP Pulse Ox 98.6 F 79 20 113/72 96 08/13/17 07:48 08/13/17 09:33 08/13/17 07:48 08/13/17 07:48 08/13/17 09:33 Results Result Diagrams: 08/13/17 07:30 Abnormal lab results 08/13/17 Range/Units 07:30 WBC 12.1 H (4.5-11.0) K/mm3 RBC 3.23 L (3.65-5.03) M/mm3 Hgb 9.8 L (10.1-14.3) gm/dl Hct 28.7 L (30.3-42.9) % Seg Neutrophils % 73.2 H (40.0-70.0) % Seg Neutrophils # 8.8 H (1.8-7.7) K/mm3 All other labs normal.
[2017-08-13] MEDS ORDERED: MAGNESIUM SULFATE 4GM/100ML 4 GM/100 ML BAG IV ONE (10:07)
[2017-08-13] MEDS ORDERED: POLYCILLIN/NS 2 GM/100 ML 2 GM/100 ML BAG IV ONE (10:08)
[2017-08-13] MEDS: POLYCILLIN/NS 1 GM/50 ML 1 GM/50 ML BAG IV SCH ×2 (10:33→17:02)
[2017-08-13] MEDS ORDERED: MAGNESIUM SULFATE 40GM/1000ML 40 GM/1,000 ML BAG IV SCH (11:00)
--- NOTE | 2017-08-13 12:51 | Progress Note ---
Subjective - Subjective Date of service: 08/13/17 Principal diagnosis: SIUP at 27 weeks and 1 day in labor and vaginal bleeding Interval history: Patient is a 21-year-old at 27 weeks and 1 day who presents to Labor and Delivery this AM complaining of vaginal bleeding. She is a patient of [facility]. Patient speaks French only. She states that she woke up at around 7 AM and feels blood coming from the vagina. She denies any fluid leakage or pain. She reports good movement. She denies having any recent sexual intercourse. She was admitted on 08/09 for vaginal bleeding and sonogram showed a normal plecenta and no previa . Magnesium and celestone were given. The bleeding stopped after a few hours. She was discharged home yesterday after 3 days of observation with no bleeding. Her course has been unremarkable. This AM, she was admitted with diagnosis of PTL and magnesium and IV antibiotics were given. The bleeding stopped. FHT remained CAT1 tracing. About 5 hours later, she started to bleed again. She complains of low back pain. Exam: a large clot in the vagina which was removed, a gush of water was seen, cervix was unchanged. No fluid pooling was seen. [place]: contractions every 2-3 mins. PMH: denies PHS: denies Allergy: denies Social: Denies any smoking, ETOH, or IVDA. Fam Hx: denies Potato Seed Cutter: unremarkable ObHx: Primigravida Physical Exam: Vitals:T98.5, HR 84, RR 18, BP 103/55 General: no acute distress. HEENT: normal. CVS: normal S1 S2. Breast: deferred. Abdomen: soft, no tenderness, uterus gravid 28 cm fundal height. Ext: no edema,. no calf TN, no Kevin's sign. Pelvic: Speculum: large clot in vaginal vault. No active bleeding, cervix 1 cm/ long/post. No lesion. No vaginal lesion or laceration. heart tones in the 140's, no deceleration. Labs: H/H: 9.8/28.7 Sonogram (at 9 AM): SIUP, VTX, EFW: 1432, DARCI 16, placenta left lateral, no previa, no retroplacental clots. Sonogram (at 12 PM): VTX. Assessment: 21 year old at 27 weeks and 1 day gestation in labor and vaginal bleeding. Celestone was completed 3 days ago. Plan: 1. Admit to Labor and Delivery. 2. Continue IV hydration and IV antibiotics. 3. FHT and toco monitoring. 4. Continue magnesium sulfate. Monitor Mg level. 5. APA consult was called. 6. Bed rest. Monitor for bleeding. Objective - Vital Signs Vital Signs: Vital Signs - 12hr 08/13/17 08/13/17 08/13/17 07:25 07:30 07:36 Temperature Pulse Rate 81 75 78 Respiratory Rate Blood Pressure Blood Pressure [Right] O2 Sat by Pulse 98 96 96 Oximetry 08/13/17 08/13/17 08/13/17 07:38 07:48 07:51 Temperature 98.6 F Pulse Rate 75 74 77 Respiratory 20 Rate Blood Pressure Blood Pressure 113/72 [Right] O2 Sat by Pulse 96 97 91 Oximetry 08/13/17 08/13/17 08/13/17 07:56 08:01 08:06 Temperature Pulse Rate 76 81 87 Respiratory Rate Blood Pressure Blood Pressure [Right] O2 Sat by Pulse 97 98 97 Oximetry 08/13/17 08/13/17 08/13/17 08:11 08:17 08:22 Temperature Pulse Rate 77 77 88 Respiratory Rate Blood Pressure Blood Pressure [Right] O2 Sat by Pulse 97 97 96 Oximetry 08/13/17 08/13/17 08/13/17 08:27 08:32 08:37 Temperature Pulse Rate 81 74 87 Respiratory Rate Blood Pressure Blood Pressure [Right] O2 Sat by Pulse 97 95 95 Oximetry 08/13/17 08/13/17 08/13/17 08:42 08:47 08:52 Temperature Pulse Rate 72 85 76 Respiratory Rate Blood Pressure Blood Pressure [Right] O2 Sat by Pulse 96 96 95 Oximetry 08/13/17 08/13/17 08/13/17 08:58 09:03 09:08 Temperature Pulse Rate 77 77 79 Respiratory Rate Blood Pressure Blood Pressure [Right] O2 Sat by Pulse 96 96 96 Oximetry 08/13/17 08/13/17 08/13/17 09:13 09:18 09:23 Temperature Pulse Rate 79 80 81 Respiratory Rate Blood Pressure Blood Pressure [Right] O2 Sat by Pulse 95 96 96 Oximetry 08/13/17 08/13/17 08/13/17 09:28 09:33 09:53 Temperature Pulse Rate 79 79 79 Respiratory Rate Blood Pressure 101/58 Blood Pressure [Right] O2 Sat by Pulse 96 96 97 Oximetry 08/13/17 08/13/17 08/13/17 09:58 10:03 10:08 Temperature Pulse Rate 78 94 H 82 Respiratory Rate Blood Pressure Blood Pressure [Right] O2 Sat by Pulse 97 97 96 Oximetry 08/13/17 08/13/17 08/13/17 10:13 10:18 10:23 Temperature Pulse Rate 79 78 77 Respiratory Rate Blood Pressure Blood Pressure [Right] O2 Sat by Pulse 97 98 98 Oximetry 08/13/17 08/13/17 08/13/17 10:28 10:33 10:37 Temperature Pulse Rate 79 74 82 Respiratory Rate Blood Pressure 92/55 Blood Pressure [Right] O2 Sat by Pulse 98 97 97 Oximetry 08/13/17 08/13/17 08/13/17 10:43 10:48 10:53 Temperature Pulse Rate 82 84 82 Respiratory Rate Blood Pressure Blood Pressure [Right] O2 Sat by Pulse 97 96 96 Oximetry 08/13/17 08/13/17 08/13/17 10:58 11:03 11:08 Temperature Pulse Rate 80 85 81 Respiratory Rate Blood Pressure Blood Pressure [Right] O2 Sat by Pulse 96 96 96 Oximetry 08/13/17 08/13/17 08/13/17 11:13 11:16 11:18 Temperature Pulse Rate 87 85 80 Respiratory Rate Blood Pressure 103/55 Blood Pressure [Right] O2 Sat by Pulse 96 97 Oximetry 08/13/17 08/13/17 08/13/17 11:23 11:28 11:33 Temperature Pulse Rate 87 89 81 Respiratory Rate Blood Pressure Blood Pressure [Right] O2 Sat by Pulse 97 96 97 Oximetry 08/13/17 08/13/17 08/13/17 11:38 11:43 11:48 Temperature Pulse Rate 84 82 86 Respiratory Rate Blood Pressure Blood Pressure [Right] O2 Sat by Pulse 97 97 97 Oximetry 08/13/17 08/13/17 08/13/17 11:53 11:55 11:58 Temperature 98.5 F Pulse Rate 84 90 Respiratory Rate Blood Pressure Blood Pressure [Right] O2 Sat by Pulse 97 97 Oximetry 08/13/17 08/13/17 08/13/17 12:03 12:08 12:13 Temperature Pulse Rate 85 87 92 H Respiratory Rate Blood Pressure Blood Pressure [Right] O2 Sat by Pulse 96 97 97 Oximetry 08/13/17 08/13/17 08/13/17 12:18 12:23 12:28 Temperature Pulse Rate 89 91 H 85 Respiratory Rate Blood Pressure Blood Pressure [Right] O2 Sat by Pulse 97 97 97 Oximetry 08/13/17 08/13/17 08/13/17 12:33 12:38 12:43 Temperature Pulse Rate 88 88 85 Respiratory Rate Blood Pressure Blood Pressure [Right] O2 Sat by Pulse 97 96 97 Oximetry 08/13/17 12:48 Temperature Pulse Rate 89 Respiratory Rate Blood Pressure Blood Pressure [Right] O2 Sat by Pulse 97 Oximetry - Labs Labs: Abnormal Labs 08/13/17 07:30 WBC 12.1 H RBC 3.23 L Hgb 9.8 L Hct 28.7 L Seg Neutrophils % 73.2 H Seg Neutrophils # 8.8 H Laboratory Results - last 24 hr 08/13/17 08/13/17 07:30 07:30 WBC 12.1 H RBC 3.23 L Hgb 9.8 L Hct 28.7 L MCV 89 MCH 30 MCHC 34 RDW 13.4 Plt Count 346 Lymph % (Auto) 18.7 Green % (Auto) 6.3 Eos % (Auto) 1.2 Baso % (Auto) 0.6 Lymph # 2.3 Green # 0.8 Eos # 0.2 Baso # 0.1 Seg Neutrophils % 73.2 H Seg Neutrophils # 8.8 H Blood Type B POSITIVE Antibody Screen Negative
[2017-08-13 14:26] LABS: Urine Drugs of Abuse Note Disclamer
[2017-08-13 14:37] LABS: Basophils % (Auto) 0.4 % (0.0-1.8); Eosinophils % (Auto) 0.7 % (0.0-4.3); Hematocrit 24.2 % (30.3-42.9); Mean Corpuscular HGB Conc 33 % (30-34); Mean Corpuscular Hemoglobin 29 pg (28-32); Mean Corpuscular Volume 88 fl (79-97); Platelet Count 325 K/mm3 (140-440); Red Blood Count 2.74 M/mm3 (3.65-5.03); Red Cell Distribution Width 13.2 % (13.2-15.2); White Blood Count 12.5 K/mm3 (4.5-11.0)
[2017-08-13] MEDS ORDERED: LACTATED RINGERS 1,000 ML ONE (14:38)
[2017-08-13 14:43] LABS: Bilirubin,Urine NEG (Negative); Blood,Urine SM (Negative); Ketones,Urine TR mg/dL (Negative); Leukocyte Esterase,Urine NEG (Negative); Nitrite,Urine NEG (Negative); Protein,Urine <15 mg/dL mg/dL (Negative); Urobilinogen,Urine < 2.0 mg/dL (<2.0)
[2017-08-13 14:46] LABS: INR 1.01 (0.87-1.13)
[2017-08-13 14:47] LABS: Partial Thromboplastin Time 26.8 Sec. (24.2-36.6)
[2017-08-13] MEDS ORDERED: NACL 0.9% 500 ML 500 ML IV ONE ×2 (15:14→15:49)
--- NOTE | 2017-08-13 15:24 | Consultation ---
History of Present Illness Consult date: 08/13/17 Requesting physician: ROSEMARY COLVIN History of present illness: HPI Chinese Translation Line Utilized # [id number] Ms. Irvin is a 21 y/o SF JONI 11/11/17 EGA 27 1/7 weeks presenting with Vaginal Bleeding. Denies Trauma or intercourse Recently admitted 08/09/17 to 08/12/17 for vagninal bleeding. S/P Steroids for FLM. Patient was discharge yesterday after bleeding stopped for 24 Hours- 48 hours Reports bleeding this am around 7 am. Contractions also noted 3 to 4 minutes per nurse. Started on Mg and contractions spaced out but still feels "pains" US in room and BPP 05/30 , no previa and no obvious visual abruption ------- H/H 9.8/28.7 at 7:30 am then 8.0/24.2 at 14:30 - Prob secondary to both bleeding and Hemodilution Plts at 329 PT/PTT NL ------- US EFW ??? - 1432 grams at 100% ( Predicted mean for 27 1/7 weeks 1070 grams ) Per Dr. Colvin her JONI if her JONI 10/27/17 which would put her at 29 2/[address] her at 50% (predicted mean 1433 grams at 29 2/7 weeks) Please try to confirm dating May have US return and also obtain Cerebellum dating measurement -------- Denies med ds, surg , C/D/D, NKA, STD's --------- Abdomen NT gravid Vag small amount blood to pad See notes from Dr. Colvin --------- EFM earlier variables noted - EFM now 140's Pos Accels occ ctxs Past History - Obstetrical History : 1 Medications and Allergies Allergies Allergy/AdvReac Type Severity Reaction Status Date / Time No Known Allergies Allergy Verified 08/09/17 02:29 Home Medications Medication Instructions Recorded Confirmed Last Taken Type Vit-Fe Fumar-FA [ 1 tab PO QDAY 08/09/17 08/09/17 Unknown History Vitamin] metroNIDAZOLE [Flagyl] 500 mg PO Q12HR 7 Days 08/12/17 Unknown Rx Active Meds: Active Medications Magnesium Sulfate (Magnesium Sulfate 40gm/1000ml) 40 gm in 1,000 mls @ 37.5 mls /hr IV DIRECT ANALI PRN Reason: 1.5 GM/HR Last Admin: 08/13/17 11:11 Dose: 1.5 gm/hr, 37.5 mls/hr Ampicillin Sodium (Polycillin/Ns 1 Gm/50 Ml) 1 gm in 50 mls @ 100 mls/hr IV Q6HR ANALI PRN Reason: Protocol Last Admin: 08/13/17 10:33 Dose: 100 mls/hr Sodium Chloride (Nacl 0.9% 500 Ml) 500 mls @ 0 mls/hr IV ONCE ONE PRN Reason: As Directed Stop: 08/13/17 15:15 - Vital Signs Vital signs: Vital Signs Pulse Pulse Ox 81 98 08/13/17 07:25 08/13/17 07:25 Temp Pulse Resp BP Pulse Ox 98.5 F 100 H 20 91/54 95 08/13/17 11:55 08/13/17 14:29 08/13/17 07:48 08/13/17 14:29 08/13/17 14:28 Results Result Diagrams: 08/13/17 14:13 Abnormal lab results 08/13/17 08/13/17 08/13/17 Range/Units 07:30 07:30 14:13 WBC 12.1 H 12.5 H (4.5-11.0) K/mm3 RBC 3.23 L 2.74 L (3.65-5.03) M/mm3 Hgb 9.8 L 8.0 L (10.1-14.3) gm/dl Hct 28.7 L 24.2 L (30.3-42.9) % Lymph % (Auto) 11.1 L (13.4-35.0) % Seg Neutrophils % 73.2 H 82.3 H (40.0-70.0) % Seg Neutrophils # 8.8 H 10.3 H (1.8-7.7) K/mm3 Crossmatch See Detail All other labs normal. Assessment and Plan 1. [place] IUP at 27 1/7 weeks (> 100% - Confirm Dating) 2. Vaginal Bleeding - ?? Abruption 3. Anemia Recommendations: 1. Type and Cross and transfuse 2 Units of PRBC's 2. Hold at least 2 units 3. S/P Steroids 4. Mg - per protocol 5. NICU consult 6. Discussed in detail with patient and FOC with oil and gas field technician. Explained if bleeding increasing will need to delivery by C/S 7. Repeat CBC 2 Hours after transfusion 8. Try to obtain any records as patient may be 2 weeks further along 9. Cont EFM
[2017-08-13] MEDS: LACTATED RINGERS 500 ML IV SCH ×2 (15:42→17:03)
--- NOTE | 2017-08-13 16:34 | Progress Note ---
Subjective - Subjective Date of service: 08/13/17 Principal diagnosis: SIUP at 27 weeks and 1 day in labor and vaginal bleeding Interval history: Patient is a 21-year-old at 27 weeks and 1 day who presents to Labor and Delivery this AM complaining of vaginal bleeding. She is a patient of [facility]. Patient speaks Danish only. She states that she woke up at around 7 AM and feels blood coming from the vagina. She denies any fluid leakage or pain. She reports good movement. She denies having any recent sexual intercourse. She was admitted on 08/09 for vaginal bleeding and sonogram showed a normal plecenta and no previa . Magnesium and celestone were given. The bleeding stopped after a few hours. She was discharged home yesterday after 3 days of observation with no bleeding. Her course has been unremarkable. This AM, she was admitted with diagnosis of PTL and magnesium and IV antibiotics were given. The bleeding stopped. FHT remained CAT1 tracing. About 5 hours later, she started to bleed again. She complains of low back pain. Exam: a large clot in the vagina which was removed, a gush of water was seen, cervix was unchanged. No fluid pooling was seen. [place]: contractions every 2-3 mins. Again, at 3:30 PM, pt c/o bleeding. Exam showed a large clot in the vaginal vault, but no active bleeding seen. the cervix remained unchanged. Physical Exam: Vitals:T98.5, HR 84, RR 18, BP 91/55, repeat 103/60 General: no acute distress. HEENT: normal. CVS: normal S1 S2. Breast: deferred. Abdomen: soft, no tenderness, uterus gravid 28 cm fundal height. Ext: no edema,. no calf TN, no Kevin's sign. Pelvic: Speculum: large clot in vaginal vault (3rd exam showing this size of clot). Yet, no active bleeding seen during the exams. Cervix 1 cm/long/post. No lesion. No vaginal lesion or laceration. heart tones in the 130's, occasional variables earlier which recovered to baseline after IV bolus. Labs: H/H: 9.8/28.7, H/H current: 8.0/24.0 Sonogram (at 9 AM): SIUP, VTX, EFW: 1432, DARCI 16, placenta left lateral, no previa, no retroplacental clots. Sonogram (at 3 PM): SIUP, VTX, BPP 8. Assessment: 21 year old at 27 weeks and 1 day gestation in labor and vaginal bleeding. FHT CAT 1 presently. Abruption not visible by ultrasound and BPP 8/8. Anemia. Celestone was completed 3 days ago. EFW size>date, possible more advanced gestational age than [address] [facility] [address] Horowitz saw the patient and recommended delivery if bleeding persists. Plan: 1. Will transfuse 2 units PRBCs. 2. If bleeding starts again or if FHT variables recur, will deliver. 3. NICU consult was done. Pt was told about the above plan via a cattle sorter. Will transfuse 2 units PRBCs.FHT and toco monitoring. 4. Continue magnesium sulfate. Monitor Mg level. Objective - Vital Signs Vital Signs: Vital Signs - 12hr 08/13/17 08/13/17 08/13/17 07:25 07:30 07:36 Temperature Pulse Rate 81 75 78 Respiratory Rate Blood Pressure Blood Pressure [Right] O2 Sat by Pulse 98 96 96 Oximetry 08/13/17 08/13/17 08/13/17 07:38 07:48 07:51 Temperature 98.6 F Pulse Rate 75 74 77 Respiratory 20 Rate Blood Pressure Blood Pressure 113/72 [Right] O2 Sat by Pulse 96 97 91 Oximetry 08/13/17 08/13/17 08/13/17 07:56 08:01 08:06 Temperature Pulse Rate 76 81 87 Respiratory Rate Blood Pressure Blood Pressure [Right] O2 Sat by Pulse 97 98 97 Oximetry 08/13/17 08/13/17 08/13/17 08:11 08:17 08:22 Temperature Pulse Rate 77 77 88 Respiratory Rate Blood Pressure Blood Pressure [Right] O2 Sat by Pulse 97 97 96 Oximetry 08/13/17 08/13/17 08/13/17 08:27 08:32 08:37 Temperature Pulse Rate 81 74 87 Respiratory Rate Blood Pressure Blood Pressure [Right] O2 Sat by Pulse 97 95 95 Oximetry 08/13/17 08/13/17 08/13/17 08:42 08:47 08:52 Temperature Pulse Rate 72 85 76 Respiratory Rate Blood Pressure Blood Pressure [Right] O2 Sat by Pulse 96 96 95 Oximetry 08/13/17 08/13/17 08/13/17 08:58 09:03 09:08 Temperature Pulse Rate 77 77 79 Respiratory Rate Blood Pressure Blood Pressure [Right] O2 Sat by Pulse 96 96 96 Oximetry 08/13/17 08/13/17 08/13/17 09:13 09:18 09:23 Temperature Pulse Rate 79 80 81 Respiratory Rate Blood Pressure Blood Pressure [Right] O2 Sat by Pulse 95 96 96 Oximetry 08/13/17 08/13/17 08/13/17 09:28 09:33 09:53 Temperature Pulse Rate 79 79 79 Respiratory Rate Blood Pressure 101/58 Blood Pressure [Right] O2 Sat by Pulse 96 96 97 Oximetry 08/13/17 08/13/17 08/13/17 09:58 10:03 10:08 Temperature Pulse Rate 78 94 H 82 Respiratory Rate Blood Pressure Blood Pressure [Right] O2 Sat by Pulse 97 97 96 Oximetry 08/13/17 08/13/17 08/13/17 10:13 10:18 10:23 Temperature Pulse Rate 79 78 77 Respiratory Rate Blood Pressure Blood Pressure [Right] O2 Sat by Pulse 97 98 98 Oximetry 08/13/17 08/13/17 08/13/17 10:28 10:33 10:37 Temperature Pulse Rate 79 74 82 Respiratory Rate Blood Pressure 92/55 Blood Pressure [Right] O2 Sat by Pulse 98 97 97 Oximetry 08/13/17 08/13/17 08/13/17 10:43 10:48 10:53 Temperature Pulse Rate 82 84 82 Respiratory Rate Blood Pressure Blood Pressure [Right] O2 Sat by Pulse 97 96 96 Oximetry 08/13/17 08/13/17 08/13/17 10:58 11:03 11:08 Temperature Pulse Rate 80 85 81 Respiratory Rate Blood Pressure Blood Pressure [Right] O2 Sat by Pulse 96 96 96 Oximetry 08/13/17 08/13/17 08/13/17 11:13 11:16 11:18 Temperature Pulse Rate 87 85 80 Respiratory Rate Blood Pressure 103/55 Blood Pressure [Right] O2 Sat by Pulse 96 97 Oximetry 08/13/17 08/13/17 08/13/17 11:23 11:28 11:33 Temperature Pulse Rate 87 89 81 Respiratory Rate Blood Pressure Blood Pressure [Right] O2 Sat by Pulse 97 96 97 Oximetry 1008/13/17 08/13/17 11:38 11:43 11:48 Temperature Pulse Rate 84 82 86 Respiratory Rate Blood Pressure Blood Pressure [Right] O2 Sat by Pulse 97 97 97 Oximetry 08/13/17 08/13/17 08/13/17 11:53 11:55 11:58 Temperature 98.5 F Pulse Rate 84 90 Respiratory Rate Blood Pressure Blood Pressure [Right] O2 Sat by Pulse 97 97 Oximetry 08/13/17 08/13/17 08/13/17 12:03 12:08 12:13 Temperature Pulse Rate 85 87 92 H Respiratory Rate Blood Pressure Blood Pressure [Right] O2 Sat by Pulse 96 97 97 Oximetry 08/13/17 08/13/17 08/13/17 12:18 12:23 12:28 Temperature Pulse Rate 89 91 H 85 Respiratory Rate Blood Pressure Blood Pressure [Right] O2 Sat by Pulse 97 97 97 Oximetry 08/13/17 08/13/17 08/13/17 12:33 12:38 12:43 Temperature Pulse Rate 88 88 85 Respiratory Rate Blood Pressure Blood Pressure [Right] O2 Sat by Pulse 97 96 97 Oximetry 08/13/17 08/13/17 08/13/17 12:48 12:53 12:58 Temperature Pulse Rate 89 90 91 H Respiratory Rate Blood Pressure Blood Pressure [Right] O2 Sat by Pulse 97 97 96 Oximetry 08/13/17 08/13/17 08/13/17 13:03 13:08 13:13 Temperature Pulse Rate 87 87 92 H Respiratory Rate Blood Pressure Blood Pressure [Right] O2 Sat by Pulse 97 97 96 Oximetry 08/13/17 08/13/17 08/13/17 13:18 13:23 13:28 Temperature Pulse Rate 91 H 90 97 H Respiratory Rate Blood Pressure Blood Pressure [Right] O2 Sat by Pulse 97 96 96 Oximetry 08/13/17 08/13/17 08/13/17 13:33 13:38 13:43 Temperature Pulse Rate 100 H 92 H 98 H Respiratory Rate Blood Pressure Blood Pressure [Right] O2 Sat by Pulse 97 96 96 Oximetry 08/13/17 08/13/17 08/13/17 13:48 13:49 13:53 Temperature Pulse Rate 95 H 95 H 87 Respiratory Rate Blood Pressure Blood Pressure [Right] O2 Sat by Pulse 97 94 97 Oximetry 08/13/17 08/13/17 08/13/17 13:58 13:59 14:03 Temperature Pulse Rate 103 H 88 87 Respiratory Rate Blood Pressure Blood Pressure [Right] O2 Sat by Pulse 97 94 95 Oximetry 08/13/17 08/13/17 08/13/17 14:08 14:13 14:18 Temperature Pulse Rate 96 H 103 H 107 H Respiratory Rate Blood Pressure Blood Pressure [Right] O2 Sat by Pulse 96 96 96 Oximetry 08/13/17 08/13/17 08/13/17 14:23 14:28 14:29 Temperature Pulse Rate 98 H 96 H 100 H Respiratory Rate Blood Pressure 91/54 Blood Pressure [Right] O2 Sat by Pulse 96 95 Oximetry 08/13/17 08/13/17 08/13/17 15:22 15:28 15:32 Temperature Pulse Rate 94 H 96 H 88 Respiratory Rate Blood Pressure 98/54 107/60 101/60 Blood Pressure [Right] O2 Sat by Pulse Oximetry - Labs Labs: Abnormal Labs 08/13/17 08/13/17 08/13/17 07:30 07:30 14:13 WBC 12.1 H 12.5 H RBC 3.23 L 2.74 L Hgb 9.8 L 8.0 L Hct 28.7 L 24.2 L Lymph % (Auto) 11.1 L Seg Neutrophils % 73.2 H 82.3 H Seg Neutrophils # 8.8 H 10.3 H Crossmatch See Detail Laboratory Results - last 24 hr 08/13/17 08/13/17 08/13/17 07:30 07:30 14:13 WBC 12.1 H 12.5 H RBC 3.23 L 2.74 L Hgb 9.8 L 8.0 L Hct 28.7 L 24.2 L MCV 89 88 MCH 30 29 MCHC 34 33 RDW 13.4 13.2 Plt Count 346 325 Lymph % (Auto) 18.7 11.1 L [place] % (Auto) 6.3 5.5 Eos % (Auto) 1.2 0.7 Baso % (Auto) 0.6 0.4 Lymph # 2.3 1.4 [place] # 0.8 0.7 Eos # 0.2 0.1 Baso # 0.1 0.0 Seg Neutrophils % 73.2 H 82.3 H Seg Neutrophils # 8.8 H 10.3 H PT INR APTT Urine Color Urine Turbidity Urine pH Ur Specific [place] Urine Protein Urine Glucose (UA) Urine Ketones Urine Blood Urine Nitrite Urine Bilirubin Urine Urobilinogen Ur Leukocyte Esterase Urine WBC (Auto) Urine RBC (Auto) U Epithel Cells (Auto) Urine Opiates Screen Urine Methadone Screen Ur Barbiturates Screen Ur Phencyclidine Scrn Ur Amphetamines Screen U Benzodiazepines Scrn Urine Cocaine Screen U Marijuana (THC) Screen Drugs of Abuse Note Blood Type B POSITIVE Antibody Screen Negative Crossmatch See Detail 08/13/17 08/13/17 08/13/17 14:13 14:20 14:20 WBC RBC Hgb Hct MCV MCH MCHC RDW Plt Count Lymph % (Auto) [place] % (Auto) Eos % (Auto) Baso % (Auto) Lymph # [place] # Eos # Baso # Seg Neutrophils % Seg Neutrophils # PT 13.8 INR 1.01 APTT 26.8 Urine Color Straw Urine Turbidity Clear Urine pH 7.0 Ur Specific [place] 1.008 Urine Protein <15 mg/dl Urine Glucose (UA) Neg Urine Ketones Tr Urine Blood Sm Urine Nitrite Neg Urine Bilirubin Neg Urine Urobilinogen < 2.0 Ur Leukocyte Esterase Neg Urine WBC (Auto) 1.0 Urine RBC (Auto) 1.0 U Epithel Cells (Auto) < 1.0 Urine Opiates Screen Presumptive negative Urine Methadone Screen Presumptive negative Ur Barbiturates Screen Presumptive negative Ur Phencyclidine Scrn Presumptive negative Ur Amphetamines Screen Presumptive negative U Benzodiazepines Scrn Presumptive negative Urine Cocaine Screen Presumptive negative U Marijuana (THC) Screen Presumptive negative Drugs of Abuse Note Disclamer Blood Type Antibody Screen Crossmatch
[2017-08-13] MEDS ORDERED: PEPCID IV ONE (18:19)
[2017-08-13] MEDS ORDERED: ANCEF/STERILE WATER 2 GM/20 ML 0 GM/0 ML SYRINGE IV ONE (18:19)
[2017-08-13] MEDS ORDERED: REGLAN ONE (18:19)
[2017-08-13] MEDS ORDERED: BICITRA ONE (18:19)
[2017-08-13] MEDS ORDERED: PITOCin/NS 20 UNIT/1000ML DRIP 20,000 MILLIUNITS/1,000 ML BAG IV ONE (18:20)
[2017-08-13] MEDS ORDERED: MORPHINE ONE (18:30)
[2017-08-13] MEDS ORDERED: NACL 0.9% IR ONE (18:40)
[2017-08-13] MEDS ORDERED: WATER FOR IRRIG STERILE IR ONE (18:40)
[2017-08-13] MEDS ORDERED: ANCEF/STERILE WATER 2 GM/20 ML 2 GM/20 ML SYRINGE IV ONE (18:49)
[2017-08-13] MEDS ORDERED: HEMABATE IM ONE ×2 (18:58→19:04)
[2017-08-13] MEDS ORDERED: ZOFRAN ONE (19:01)
[2017-08-13] MEDS ORDERED: VERSED ONE (19:11)
[2017-08-13] MEDS ORDERED: NEO SYNEPHRINE/NS Syringe(OR USE) IV ONE (19:30)
[2017-08-13] MEDS ORDERED: LANSINOH TP PRN (19:40)
[2017-08-13] MEDS ORDERED: PHENERGAN PR PRN (19:40)
[2017-08-13] MEDS ORDERED: NARCAN 0.4 MG/1 ML IV PRN (19:40)
[2017-08-13] MEDS ORDERED: ZOFRAN IV PRN (19:40)
[2017-08-13] MEDS ORDERED: TUCKS PAD TP PRN (19:40)
[2017-08-13] MEDS ORDERED: MORPHINE IV PRN ×2 (19:53→19:56)
--- NOTE | 2017-08-13 19:54 | Progress Note ---
Subjective - Subjective Date of service: 08/13/17 Principal diagnosis: SIUP at 27 weeks and 1 day in labor and vaginal bleeding Interval history: Patient is a 21-year-old at 27 weeks and 1 day who presents to Labor and Delivery this AM complaining of vaginal bleeding. She is a patient of [facility]. Patient speaks Micronesian only. She states that she woke up at around 7 AM and feels blood coming from the vagina. She denies any fluid leakage or pain. She reports good movement. She denies having any recent sexual intercourse. She was admitted on 08/09 for vaginal bleeding and sonogram showed a normal plecenta and no previa . Magnesium and celestone were given. The bleeding stopped after a few hours. She was discharged home yesterday after 3 days of observation with no bleeding. Her course has been unremarkable. This AM, she was admitted with diagnosis of PTL and magnesium and IV antibiotics were given. The bleeding stopped. FHT remained CAT1 tracing. About 5 hours later, she started to bleed again. She complains of low back pain. Exam: a large clot in the vagina which was removed, a gush of water was seen, cervix was unchanged. No fluid pooling was seen. [place]: contractions every 2-3 mins. Again, at 3:30 PM, pt c/o bleeding. Exam showed a large clot in the vaginal vault, but no active bleeding seen. the cervix remained unchanged. The bleeding stopped for about 2 hours and started again. On exam, there was gush of bright red blood. FHT was in the 150's bpm, no deceleration. [place]: contraction Q3-4 mins. Physical Exam: Vitals:T98F, HR 84, RR 18, BP 94/50 Pelvic: on inspection, active heavy bleeding. Labs: H/H: 9.8/28.7, H/H current: 8.0/24.0, first unit PRBC was ongoing. Assessment: 21 year old at 27 weeks and 1 day gestation with vaginal bleeding mostly secondary to placental abruption. Patient is being transfused. FhT in the 150's bpm, no deceleration. Plan: 1. Pt counselled for emergency C/section. Risks, benefits of the procedure were discussed in detail with the patient such as infection, hemorrhage requiring blood transfusion, injury to the bowel, bladder and blood vessels. She expressed understanding via workforce development program director, her questions were answered, she gave her informed consent. 2. NICU team and anesthesia have been called. 3. Keep transfusion going, monitor heart tracing. Objective - Vital Signs Vital Signs: Vital Signs - 12hr 08/13/17 08/13/17 08/13/17 07:48 07:51 07:56 Temperature 98.6 F Pulse Rate 74 77 76 Respiratory 20 Rate Blood Pressure Blood Pressure 113/72 [Right] O2 Sat by Pulse 97 91 97 Oximetry 08/13/17 08/13/17 08/13/17 08:01 08:06 08:11 Temperature Pulse Rate 81 87 77 Respiratory Rate Blood Pressure Blood Pressure [Right] O2 Sat by Pulse 98 97 97 Oximetry 08/13/17 08/13/17 08/13/17 08:17 08:22 08:27 Temperature Pulse Rate 77 88 81 Respiratory Rate Blood Pressure Blood Pressure [Right] O2 Sat by Pulse 97 96 97 Oximetry 08/13/17 08/13/17 08/13/17 08:32 08:37 08:42 Temperature Pulse Rate 74 87 72 Respiratory Rate Blood Pressure Blood Pressure [Right] O2 Sat by Pulse 95 95 96 Oximetry 08/13/17 08/13/17 08/13/17 08:47 08:52 08:58 Temperature Pulse Rate 85 76 77 Respiratory Rate Blood Pressure Blood Pressure [Right] O2 Sat by Pulse 96 95 96 Oximetry 08/13/17 08/13/17 08/13/17 09:03 09:08 09:13 Temperature Pulse Rate 77 79 79 Respiratory Rate Blood Pressure Blood Pressure [Right] O2 Sat by Pulse 96 96 95 Oximetry 08/13/17 08/13/17 08/13/17 09:18 09:23 09:28 Temperature Pulse Rate 80 81 79 Respiratory Rate Blood Pressure Blood Pressure [Right] O2 Sat by Pulse 96 96 96 Oximetry 08/13/17 08/13/17 08/13/17 09:33 09:53 09:58 Temperature Pulse Rate 79 79 78 Respiratory Rate Blood Pressure 101/58 Blood Pressure [Right] O2 Sat by Pulse 96 97 97 Oximetry 08/13/17 08/13/17 08/13/17 10:03 10:08 10:13 Temperature Pulse Rate 94 H 82 79 Respiratory Rate Blood Pressure Blood Pressure [Right] O2 Sat by Pulse 97 96 97 Oximetry 08/13/17 08/13/17 08/13/17 10:18 10:23 10:28 Temperature Pulse Rate 78 77 79 Respiratory Rate Blood Pressure Blood Pressure [Right] O2 Sat by Pulse 98 98 98 Oximetry 08/13/17 08/13/17 08/13/17 10:33 10:37 10:43 Temperature Pulse Rate 74 82 82 Respiratory Rate Blood Pressure 92/55 Blood Pressure [Right] O2 Sat by Pulse 97 97 97 Oximetry 08/13/17 08/13/17 08/13/17 10:48 10:53 10:58 Temperature Pulse Rate 84 82 80 Respiratory Rate Blood Pressure Blood Pressure [Right] O2 Sat by Pulse 96 96 96 Oximetry 08/13/17 08/13/17 08/13/17 11:03 11:08 11:13 Temperature Pulse Rate 85 81 87 Respiratory Rate Blood Pressure Blood Pressure [Right] O2 Sat by Pulse 96 96 96 Oximetry 08/13/17 08/13/17 08/13/17 11:16 11:18 11:23 Temperature Pulse Rate 85 80 87 Respiratory Rate Blood Pressure 103/55 Blood Pressure [Right] O2 Sat by Pulse 97 97 Oximetry 08/13/17 08/13/17 08/13/17 11:28 11:33 11:38 Temperature Pulse Rate 89 81 84 Respiratory Rate Blood Pressure Blood Pressure [Right] O2 Sat by Pulse 96 97 97 Oximetry 08/13/17 08/13/17 08/13/17 11:43 11:48 11:53 Temperature Pulse Rate 82 86 84 Respiratory Rate Blood Pressure Blood Pressure [Right] O2 Sat by Pulse 97 97 97 Oximetry 08/13/17 08/13/17 08/13/17 11:55 11:58 12:03 Temperature 98.5 F Pulse Rate 90 85 Respiratory Rate Blood Pressure Blood Pressure [Right] O2 Sat by Pulse 97 96 Oximetry 08/13/17 08/13/17 08/13/17 12:08 12:13 12:18 Temperature Pulse Rate 87 92 H 89 Respiratory Rate Blood Pressure Blood Pressure [Right] O2 Sat by Pulse 97 97 97 Oximetry 08/13/17 08/13/17 08/13/17 12:23 12:28 12:33 Temperature Pulse Rate 91 H 85 88 Respiratory Rate Blood Pressure Blood Pressure [Right] O2 Sat by Pulse 97 97 97 Oximetry 08/13/17 08/13/17 08/13/17 12:38 12:43 12:48 Temperature Pulse Rate 88 85 89 Respiratory Rate Blood Pressure Blood Pressure [Right] O2 Sat by Pulse 96 97 97 Oximetry 08/13/17 08/13/17 08/13/17 12:53 12:58 13:03 Temperature Pulse Rate 90 91 H 87 Respiratory Rate Blood Pressure Blood Pressure [Right] O2 Sat by Pulse 97 96 97 Oximetry 08/13/17 08/13/17 08/13/17 13:08 13:13 13:18 Temperature Pulse Rate 87 92 H 91 H Respiratory Rate Blood Pressure Blood Pressure [Right] O2 Sat by Pulse 97 96 97 Oximetry 08/13/17 08/13/17 08/13/17 13:23 13:28 13:33 Temperature Pulse Rate 90 97 H 100 H Respiratory Rate Blood Pressure Blood Pressure [Right] O2 Sat by Pulse 96 96 97 Oximetry 08/13/17 08/13/17 08/13/17 13:38 13:43 13:48 Temperature Pulse Rate 92 H 98 H 95 H Respiratory Rate Blood Pressure Blood Pressure [Right] O2 Sat by Pulse 96 96 97 Oximetry 08/13/17 08/13/17 08/13/17 13:49 13:53 13:58 Temperature Pulse Rate 95 H 87 103 H Respiratory Rate Blood Pressure Blood Pressure [Right] O2 Sat by Pulse 94 97 97 Oximetry 08/13/17 08/13/17 08/13/17 13:59 14:03 14:08 Temperature Pulse Rate 88 87 96 H Respiratory Rate Blood Pressure Blood Pressure [Right] O2 Sat by Pulse 94 95 96 Oximetry 08/13/17 08/13/17 08/13/17 14:13 14:18 14:23 Temperature Pulse Rate 103 H 107 H 98 H Respiratory Rate Blood Pressure Blood Pressure [Right] O2 Sat by Pulse 96 96 96 Oximetry 08/13/17 08/13/17 08/13/17 14:28 14:29 15:22 Temperature Pulse Rate 96 H 100 H 94 H Respiratory Rate Blood Pressure 91/54 98/54 Blood Pressure [Right] O2 Sat by Pulse 95 Oximetry 08/13/17 08/13/17 08/13/17 15:28 15:32 16:29 Temperature Pulse Rate 96 H 88 83 Respiratory Rate Blood Pressure 107/60 101/60 98/60 Blood Pressure [Right] O2 Sat by Pulse Oximetry 08/13/17 08/13/17 08/13/17 17:14 17:19 17:20 Temperature Pulse Rate 92 H 90 85 Respiratory Rate Blood Pressure 89/54 Blood Pressure [Right] O2 Sat by Pulse 97 96 Oximetry 08/13/17 08/13/17 08/13/17 17:24 17:26 17:29 Temperature Pulse Rate 95 H 92 H 101 H Respiratory Rate Blood Pressure 97/58 Blood Pressure [Right] O2 Sat by Pulse 96 96 Oximetry 08/13/17 08/13/17 08/13/17 17:34 17:37 17:39 Temperature Pulse Rate 88 97 H 91 H Respiratory Rate Blood Pressure 101/63 Blood Pressure [Right] O2 Sat by Pulse 96 96 Oximetry 08/13/17 08/13/17 08/13/17 17:44 17:49 17:50 Temperature Pulse Rate 91 H 92 H 93 H Respiratory Rate Blood Pressure 100/61 Blood Pressure [Right] O2 Sat by Pulse 96 96 Oximetry 08/13/17 08/13/17 08/13/17 17:54 17:56 17:59 Temperature 98.3 F Pulse Rate 90 98 H 89 Respiratory 14 Rate Blood Pressure 97/59 97/59 Blood Pressure [Right] O2 Sat by Pulse 97 97 97 Oximetry 08/13/17 08/13/17 08/13/17 18:04 18:09 18:11 Temperature Pulse Rate 98 H 86 88 Respiratory Rate Blood Pressure 100/59 Blood Pressure [Right] O2 Sat by Pulse 97 98 Oximetry 08/13/17 18:14 Temperature Pulse Rate 100 H Respiratory Rate Blood Pressure Blood Pressure [Right] O2 Sat by Pulse 97 Oximetry - Labs Labs: Abnormal Labs 08/13/17 08/13/17 08/13/17 07:30 07:30 14:13 WBC 12.1 H 12.5 H RBC 3.23 L 2.74 L Hgb 9.8 L 8.0 L Hct 28.7 L 24.2 L Lymph % (Auto) 11.1 L Seg Neutrophils % 73.2 H 82.3 H Seg Neutrophils # 8.8 H 10.3 H Magnesium Crossmatch See Detail 08/13/17 16:15 WBC RBC Hgb Hct Lymph % (Auto) Seg Neutrophils % Seg Neutrophils # Magnesium 2.50 H Crossmatch Laboratory Results - last 24 hr 08/13/17 08/13/17 08/13/17 07:30 07:30 14:13 WBC 12.1 H 12.5 H RBC 3.23 L 2.74 L Hgb 9.8 L 8.0 L Hct 28.7 L 24.2 L MCV 89 88 MCH 30 29 MCHC 34 33 RDW 13.4 13.2 Plt Count 346 325 Lymph % (Auto) 18.7 11.1 L [place] % (Auto) 6.3 5.5 Eos % (Auto) 1.2 0.7 Baso % (Auto) 0.6 0.4 Lymph # 2.3 1.4 [place] # 0.8 0.7 Eos # 0.2 0.1 Baso # 0.1 0.0 Seg Neutrophils % 73.2 H 82.3 H Seg Neutrophils # 8.8 H 10.3 H PT INR APTT Hemoglobin A1c Magnesium Urine Color Urine Turbidity Urine pH Ur Specific [place] Urine Protein Urine Glucose (UA) Urine Ketones Urine Blood Urine Nitrite Urine Bilirubin Urine Urobilinogen Ur Leukocyte Esterase Urine WBC (Auto) Urine RBC (Auto) U Epithel Cells (Auto) Urine Opiates Screen Urine Methadone Screen Ur Barbiturates Screen Ur Phencyclidine Scrn Ur Amphetamines Screen U Benzodiazepines Scrn Urine Cocaine Screen U Marijuana (THC) Screen Drugs of Abuse Note Blood Type B POSITIVE Antibody Screen Negative Crossmatch See Detail 08/13/17 08/13/17 08/13/17 14:13 14:13 14:20 WBC RBC Hgb Hct MCV MCH MCHC RDW Plt Count Lymph % (Auto) [place] % (Auto) Eos % (Auto) Baso % (Auto) Lymph # [place] # Eos # Baso # Seg Neutrophils % Seg Neutrophils # PT 13.8 INR 1.01 APTT 26.8 Hemoglobin A1c 4.7 Magnesium Urine Color Straw Urine Turbidity Clear Urine pH 7.0 Ur Specific [place] 1.008 Urine Protein <15 mg/dl Urine Glucose (UA) Neg Urine Ketones Tr Urine Blood Sm Urine Nitrite Neg Urine Bilirubin Neg Urine Urobilinogen < 2.0 Ur Leukocyte Esterase Neg Urine WBC (Auto) 1.0 Urine RBC (Auto) 1.0 U Epithel Cells (Auto) < 1.0 Urine Opiates Screen Urine Methadone Screen Ur Barbiturates Screen Ur Phencyclidine Scrn Ur Amphetamines Screen U Benzodiazepines Scrn Urine Cocaine Screen U Marijuana (THC) Screen Drugs of Abuse Note Blood Type Antibody Screen Crossmatch 08/13/17 08/13/17 14:20 16:15 WBC RBC Hgb Hct MCV MCH MCHC RDW Plt Count Lymph % (Auto) [place] % (Auto) Eos % (Auto) Baso % (Auto) Lymph # [place] # Eos # Baso # Seg Neutrophils % Seg Neutrophils # PT INR APTT Hemoglobin A1c Magnesium 2.50 H Urine Color Urine Turbidity Urine pH Ur Specific [place] Urine Protein Urine Glucose (UA) Urine Ketones Urine Blood Urine Nitrite Urine Bilirubin Urine Urobilinogen Ur Leukocyte Esterase Urine WBC (Auto) Urine RBC (Auto) U Epithel Cells (Auto) Urine Opiates Screen Presumptive negative Urine Methadone Screen Presumptive negative Ur Barbiturates Screen Presumptive negative Ur Phencyclidine Scrn Presumptive negative Ur Amphetamines Screen Presumptive negative U Benzodiazepines Scrn Presumptive negative Urine Cocaine Screen Presumptive negative U Marijuana (THC) Screen Presumptive negative Drugs of Abuse Note Disclamer Blood Type Antibody Screen Crossmatch
--- NOTE | 2017-08-13 19:54 | Operative Report ---
Operative Report Operative Report: Preoperative diagnosis: 1. SIUP at 27 weeks and 1 day gestation in labor. 2. Heavy vaginal bleeding secondary to abruption. 3. Symptomatic anemia. Post operative diagnosis: Same as preoperative diagnosis Procedure: Emergency primary low transverse . Surgeon: Dr. Wagoner Position Description Manager: Clarissa Pizarro (rubber mill tender) Anesthesia: spinal Complications: Intraoperative uterine atony. EBL 600 mL IVF: 1250 Urine: 500 mL clear Intraoperative findings: 1. Male in the vertex RHIANNON position, delivered at 6:53 PM, clear amniotic fluid, Apgars 6 at 1 minute 8 at 5 minutes, weight 2 lbs. 8 oz. 2. Retroplacental clot in the lower edge of the placenta consistent with abruption. 3. Intraoperative uterine atony responsive to myometrial Hemabate and IV Pitocin. Procedure details: Risks, benefits, and alternatives of the procedure were discussed in detail with the patient which included but not limited to the risk of infection, hemorrhage requiring blood transfusion, injury to the bowel bladder and blood vessels. The patient expressed understanding, her questions were answered, and she gave informed consent. This information was gathered via a inspection clerk. She was taken to the operating room with an IV fluid and using Ringer's lactated , Vargas catheter in place, and Venodyne boots. In the operating room, she was placed in a left lateral decubitus position. Spinal anesthesia anesthesia was given. Then, she was placed in a dorsal supine position and left forward tilt. The abdomen was washed, she was prepared and draped in usual sterile fashion. After confirming adequate spinal anesthesia, a Pfannenstiel skin incision was made in the lower abdomen about 2 cm above the pubic symphysis using the scalpel. This incision was carried down to the underlying fascia using the Bovie. The fascia was incised bilaterally in a curvilinear fashion using the Bovie. 2 straight Kocker clamps were used to grasp the upper edge of the fascia from which the underlying rectus abdominis muscle was dissected off using the Bovie. A similar procedure was done with the lower edge of the fascia to dissect the underlying rectus abdominis muscle. The muscle was bluntly from the midline by pulling. The parietal peritoneum was entered sharply using Metzenbaum scissors. A quick survey of the anatomy revealed a gravid uterus, normal fallopian tubes and ovaries bilaterally. A bladder flap was created. José Miguel retractor was placed in the incision for proper visualization. A low transverse incision was made in the lower uterine segment using the scapel and continued bilaterally using using bandage scissors. The amniotic sac was ruptured, there was copious amount of clear amniotic fluid. The infant was found in an RHIANNON position, the head was delivered atraumatically, this was followed by the delivery of the shoulders and rest of the body atraumatically at 6:53 PM. Bulb suction of the mouth and nose was performed, the cord was clamped 2 and cut, and the was handed off to the waiting apple checker. Apgars were 6 at 1 minutes and 8 at 5 minutes. Weight 2 lbs. 8 oz. Cord was collected for cord gas, results pending. The placenta was delivered manually and it was completed a three-vessel cord. There were some retroplacental darkish clots. The uterine cavity was cleaned of clots and debris using lap sponges. The uterine incision was repaired in a running locked fashion using 0 Vicryl sutures. A second layer of imbrication was placed. The gutters were cleaned of clot and debris using dry lap sponges. After confirming adequate hemostasis, the instruments were removed from the abdomen. The skin was closed with mariano. Sterile dressing was placed. The counts of laps, needle ,sponges, and instruments were correct 2. The patient tolerated the procedure well. She was taken to the recovery room in a stable condition.
--- NOTE | 2017-08-13 19:55 | Anesthesia Consultation ---
Anesthesia Consult and Med Hx Date of service: 08/13/17 - Airway Anesthetic Teeth Evaluation: Good ROM Head & Neck: Adequate Mental/Hyoid Distance: Adequate Mallampati Class: Class II Intubation Access Assessment: Probably Good - Pulmonary Exam CTA: Yes - Cardiac Exam Cardiac Exam: RRR - Pre-Operative Health Status ASA Pre-Surgery Classification: ASA2, Emergency Proposed Anesthetic Plan: Spinal - Pulmonary Hx Asthma: No COPD: No Hx Pneumonia: No - Cardiovascular System Hx Hypertension: No - Central Nervous System Hx Seizures: No Hx Psychiatric Problems: No - Endocrine Hx Renal Disease: No Hx End Stage Renal Disease: No Hx Hypothyroidism: No Hx Hyperthyroidism: No - Hematic Hx Anemia: No Hx Sickle Cell Disease: No - Other Systems Hx Alcohol Use: No - Additional Comments Anesthesia Medical History Comments: IUP, VAGINAL BLEEDING
--- NOTE | 2017-08-13 19:55 | Post Anesthesia Evaluation ---
- Post Anesthesia Evaluation Patient Participated: Yes Airway Patent: Yes Stable Respiratory Function: Yes Nausea/Vomiting: No Temp > 96.8F: Yes Pain Manageable: Yes Adequeate Hydration: Yes Anesthesia Complications: No Block Receding Appropriately: Yes Patient on Ventilator: No
--- NOTE | 2017-08-13 19:55 | Anesthesia Day of Surgery ---
Anesthesia Day of Surgery - Day of Surgery Patient Examined: Yes Patient H&P Reviewed: Yes Patient is NPO: Yes
[2017-08-13] MEDS ORDERED: DILAUDID IV PRN ×2 (19:56→20:57)
[2017-08-13] MEDS ORDERED: PITOCin/NS 20 UNIT/1000ML DRIP 20 UNITS/1,000 ML BAG IV SCH (20:00)
[2017-08-13] MEDS ORDERED: SODIUM CHLORIDE FLUSH SYRINGE 10 ML IV NR (20:00)
[2017-08-13 21:18] LABS: HIV-1 Antigen p24 Non React (Non React); HIVR-1/2 Ab Non React (Non React)
[2017-08-13 21:21] LABS: ISTAT Base Excess -1; ISTAT HCO3 24.5; ISTAT PCO2 45.1 (35-45); ISTAT PH 7.343 (7.35-7.45); ISTAT PO2 20 (80-105); ISTAT SITE 0; ISTAT SO2 28; ISTAT TCO2 26
[2017-08-13 21:21] LABS: ISTAT Base Excess -2; ISTAT HCO3 23.7; ISTAT PCO2 41.6 (35-45); ISTAT PH 7.363 (7.35-7.45); ISTAT PO2 27 (80-105); ISTAT SITE 0; ISTAT SO2 49; ISTAT TCO2 25
[2017-08-14 02:17] LABS: Hematocrit 26.6 % (30.3-42.9); Hemoglobin 9.2 gm/dl (10.1-14.3)
[2017-08-14] MEDS: LACTATED RINGERS 500 ML IV SCH (02:22)
[2017-08-14 06:53] LABS: Hemoglobin 8.7 gm/dl (10.1-14.3); Mean Corpuscular HGB Conc 35 % (30-34); Mean Corpuscular Hemoglobin 31 pg (28-32); Mean Corpuscular Volume 88 fl (79-97); Platelet Count 262 K/mm3 (140-440); Red Blood Count 2.86 M/mm3 (3.65-5.03); Red Cell Distribution Width 13.4 % (13.2-15.2)
--- NOTE | 2017-08-14 08:00 | Ultrasound Report ---
BIOPHYSICAL PROFILE: INDICATION: labor. COMPARISON: 08/09/2017. TECHNIQUE: Transabdominal ultrasound with Doppler interrogation. 2 - breathing movements 2 - movements 2 - posture and tone 2 - Qualitative amniotic fluid volume 8 - TOTAL SCORE OF POSSIBLE 8 Heart Rate (bpm) 146 CONCLUSION: Findings, as above.
--- NOTE | 2017-08-14 08:06 | Ultrasound Report ---
OB ULTRASOUND GREATER THAN 14 WEEKS INDICATION: Vaginal bleeding. Evaluate placenta. COMPARISON: 08/09/2017 TECHNIQUE: Transabdominal grayscale ultrasound with Doppler interrogation. Gestation: [place] Position: Cephalic Amniotic Fluid: WNL (7-24 cm) DARCI = 16 cm Placenta: Left lateral; no evidence of abruption. Placental Grade: 0 Heart Rate: 143 BPM Cervical length: 3.6 cm (Normal > 3 cm) BPD: 7.3 cm = 29 w 1 d HC: 26.5 cm = 28 w 6 d AC: 26.2 cm = 30 w 2 d FL: 5.5 cm = 29 w 0 d HC/AC Ratio: 1.01 Cephalic Index: 81.9 Estimated Weight: 1432 grams Clinical age = 27 w 1 d EDC: 11/11/2017 US Gest. Age = 29 w 2 d EDC: 10/27/2017 CONCLUSION: Single, viable intrauterine gestation with ultrasound estimated age of 29 weeks and 2 days and EDC of 10/27/2017, currently in cephalic lie with details, as above. Please also correlate clinically for approximately 2 weeks discrepancy with the estimated clinical age. Thank you for the opportunity to participate in this patient's care.
[2017-08-14] MEDS: MOTRIN PO PRN ×2 (08:20→18:26)
[2017-08-14] MEDS: PERCOCET 5/325 PO PRN ×2 (08:21→18:25)
--- NOTE | 2017-08-14 10:32 | Progress Note ---
Assessment and Plan A: POD #1 Asymptomatic Anemia P: Follow Routine PostOp Orders Encourage increased ambulation Continue PO FESO4 Infed 100mg IM x 1 dose Subjective - Subjective Date of service: 08/14/17 Principal diagnosis: SIUP at 27 weeks and 1 day in labor and vaginal bleeding Patient reports: appetite normal, pain well controlled, flatus, ambulating normally, other (Vargas just removed; patient not up to void yet) : in NICU Objective - Vital Signs Latest vital signs: Vital Signs Temp Pulse Resp BP BP BP Pulse Ox 08/14/17 08:10 99.8 F H 78 16 100/60 08/14/17 04:00 99.2 F 81 16 99/61 08/14/17 00:42 98.5 F 71 16 101/65 08/13/17 22:16 98.1 F 66 16 97/59 08/13/17 21:00 97.8 F 79 18 95/55 95 08/13/17 20:59 20 08/13/17 20:55 77 19 102/66 96 08/13/17 20:50 69 19 95/65 97 08/13/17 20:45 66 18 99/58 97 08/13/17 20:40 82 18 106/68 95 08/13/17 20:35 73 16 95/55 96 08/13/17 20:30 68 17 89/51 96 08/13/17 20:25 76 17 101/55 96 08/13/17 20:20 70 17 91/54 95 08/13/17 20:15 74 16 98/63 96 08/13/17 20:10 78 18 95/65 95 08/13/17 20:05 76 19 95/58 96 08/13/17 20:00 81 17 96/63 95 08/13/17 19:55 82 17 102/59 98 08/13/17 19:50 72 17 94/53 94 08/13/17 19:47 97.8 F 73 18 99/61 94 08/13/17 18:14 100 H 97 08/13/17 18:11 88 100/59 08/13/17 18:09 86 98 08/13/17 18:04 98 H 97 08/13/17 17:59 89 97/59 97 08/13/17 17:56 98.3 F 98 H 14 97/59 97 08/13/17 17:54 90 97 08/13/17 17:50 93 H 100/61 08/13/17 17:49 92 H 96 08/13/17 17:44 91 H 96 08/13/17 17:39 91 H 96 08/13/17 17:37 97 H 101/63 08/13/17 17:34 88 96 08/13/17 17:29 101 H 96 08/13/17 17:26 92 H 97/58 08/13/17 17:24 95 H 96 08/13/17 17:20 85 89/54 08/13/17 17:19 90 96 08/13/17 17:14 92 H 97 08/13/17 16:29 83 98/60 08/13/17 15:32 88 101/60 08/13/17 15:28 96 H 107/60 08/13/17 15:22 94 H 98/54 08/13/17 14:29 100 H 91/54 08/13/17 14:28 96 H 95 08/13/17 14:23 98 H 96 08/13/17 14:18 107 H 96 08/13/17 14:13 103 H 96 08/13/17 14:08 96 H 96 08/13/17 14:03 87 95 08/13/17 13:59 88 94 08/13/17 13:58 103 H 97 08/13/17 13:53 87 97 08/13/17 13:49 95 H 94 08/13/17 13:48 95 H 97 08/13/17 13:43 98 H 96 08/13/17 13:38 92 H 96 08/13/17 13:33 100 H 97 08/13/17 13:28 97 H 96 08/13/17 13:23 90 96 08/13/17 13:18 91 H 97 08/13/17 13:13 92 H 96 08/13/17 13:08 87 97 08/13/17 13:03 87 97 08/13/17 12:58 91 H 96 08/13/17 12:53 90 97 08/13/17 12:48 89 97 08/13/17 12:43 85 97 08/13/17 12:38 88 96 08/13/17 12:33 88 97 08/13/17 12:28 85 97 08/13/17 12:23 91 H 97 08/13/17 12:18 89 97 08/13/17 12:13 92 H 97 08/13/17 12:08 87 97 08/13/17 12:03 85 96 08/13/17 11:58 90 97 08/13/17 11:55 98.5 F 08/13/17 11:53 84 97 08/13/17 11:48 86 97 08/13/17 11:43 82 97 08/13/17 11:38 84 97 08/13/17 11:33 81 97 08/13/17 11:28 89 96 08/13/17 11:23 87 97 08/13/17 11:18 80 97 08/13/17 11:16 85 103/55 08/13/17 11:13 87 96 08/13/17 11:08 81 96 08/13/17 11:03 85 96 08/13/17 10:58 80 96 08/13/17 10:53 82 96 08/13/17 10:48 84 96 08/13/17 10:43 82 97 08/13/17 10:37 82 97 08/13/17 10:33 74 92/55 97 Intake and Output 08/13/17 08/14/17 08/14/17 22:59 06:59 14:59 Intake Total 2700 120 Output Total 2300 1300 Balance 400 -1180 Intake: IV 2450 Lactated Ringers 500 ml @ 1000 999 mls/hr IV DIRECT ANALI Rx#:[id number] Intake, Free Water 120 Blood Product 250 Leukoreduced Rbc Part 2 250 Unit [id number] Output: Urine 2300 1300 Indwelling Catheter 1350 1300 Other: Total, Output Amount 1350 700 Estimated Blood Loss 600 - Exam Breasts: Present: normal Cardiovascular: Present: Regular rate Lungs: Present: Clear to auscultation, Normal air movement Abdomen: Present: normal appearance, soft, normal bowel sounds Uterus: Present: normal, firm, fundal height below umbilicus Incision: Present: normal, dry, intact - Labs Labs: Abnormal lab results 08/13/17 08/13/17 08/13/17 Range/Units 07:30 14:13 16:15 WBC 12.5 H (4.5-11.0) K/mm3 RBC 2.74 L (3.65-5.03) M/mm3 Hgb 8.0 L (10.1-14.3) gm/dl Hct 24.2 L (30.3-42.9) % MCHC (30-34) % Lymph % (Auto) 11.1 L (13.4-35.0) % Seg Neutrophils % 82.3 H (40.0-70.0) % Seg Neutrophils # 10.3 H (1.8-7.7) K/mm3 POC ABG pH (7.35-7.45) POC ABG pCO2 (35-45) POC ABG pO2 (80-105) Magnesium 2.50 H (1.7-2.3) mg/dL Crossmatch See Detail 08/13/17 08/13/17 08/14/17 Range/Units 19:45 19:49 02:03 WBC (4.5-11.0) K/mm3 RBC (3.65-5.03) M/mm3 Hgb 9.2 L (10.1-14.3) gm/dl Hct 26.6 L (30.3-42.9) % MCHC (30-34) % Lymph % (Auto) (13.4-35.0) % Seg Neutrophils % (40.0-70.0) % Seg Neutrophils # (1.8-7.7) K/mm3 POC ABG pH 7.343 L (7.35-7.45) POC ABG pCO2 45.1 H (35-45) POC ABG pO2 20 L 27 L (80-105) Magnesium (1.7-2.3) mg/dL Crossmatch 08/14/17 Range/Units 06:02 WBC 16.0 H (4.5-11.0) K/mm3 RBC 2.86 L (3.65-5.03) M/mm3 Hgb 8.7 L (10.1-14.3) gm/dl Hct 25.0 L (30.3-42.9) % MCHC 35 H (30-34) % Lymph % (Auto) (13.4-35.0) % Seg Neutrophils % (40.0-70.0) % Seg Neutrophils # (1.8-7.7) K/mm3 POC ABG pH (7.35-7.45) POC ABG pCO2 (35-45) POC ABG pO2 (80-105) Magnesium (1.7-2.3) mg/dL Crossmatch
[2017-08-14] MEDS ORDERED: INFED IM NR (11:30)
--- NOTE | 2017-08-14 13:40 | Progress Note ---
Subjective Date of service: 08/14/17 Principal diagnosis: SIUP at 27 weeks and 1 day in labor and vaginal bleeding Interval history: 1st POD after Patient is in the bed, comfortable. Pain is well controlled with pain meds. Ambulated well. No residual neurological deficit. No pruritus. No anesthesia complications Objective - Constitutional Vitals: Vital Signs - 12hr 08/14/17 08/14/17 04:00 08:10 Temperature 99.2 F 99.8 F H Pulse Rate 81 78 Respiratory 16 16 Rate Blood Pressure 100/60 [Left] Blood Pressure 99/61 [Right] - Labs CBC & Chem 7: 08/14/17 06:02 Labs: Abnormal lab results 08/13/17 08/13/17 08/13/17 Range/Units 07:30 14:13 16:15 WBC 12.5 H (4.5-11.0) K/mm3 RBC 2.74 L (3.65-5.03) M/mm3 Hgb 8.0 L (10.1-14.3) gm/dl Hct 24.2 L (30.3-42.9) % MCHC (30-34) % Lymph % (Auto) 11.1 L (13.4-35.0) % Seg Neutrophils % 82.3 H (40.0-70.0) % Seg Neutrophils # 10.3 H (1.8-7.7) K/mm3 POC ABG pH (7.35-7.45) POC ABG pCO2 (35-45) POC ABG pO2 (80-105) Magnesium 2.50 H (1.7-2.3) mg/dL Crossmatch See Detail 08/13/17 08/13/17 08/14/17 Range/Units 19:45 19:49 02:03 WBC (4.5-11.0) K/mm3 RBC (3.65-5.03) M/mm3 Hgb 9.2 L (10.1-14.3) gm/dl Hct 26.6 L (30.3-42.9) % MCHC (30-34) % Lymph % (Auto) (13.4-35.0) % Seg Neutrophils % (40.0-70.0) % Seg Neutrophils # (1.8-7.7) K/mm3 POC ABG pH 7.343 L (7.35-7.45) POC ABG pCO2 45.1 H (35-45) POC ABG pO2 20 L 27 L (80-105) Magnesium (1.7-2.3) mg/dL Crossmatch 08/14/17 Range/Units 06:02 WBC 16.0 H (4.5-11.0) K/mm3 RBC 2.86 L (3.65-5.03) M/mm3 Hgb 8.7 L (10.1-14.3) gm/dl Hct 25.0 L (30.3-42.9) % MCHC 35 H (30-34) % Lymph % (Auto) (13.4-35.0) % Seg Neutrophils % (40.0-70.0) % Seg Neutrophils # (1.8-7.7) K/mm3 POC ABG pH (7.35-7.45) POC ABG pCO2 (35-45) POC ABG pO2 (80-105) Magnesium (1.7-2.3) mg/dL Crossmatch
[2017-08-15] MEDS: PERCOCET 5/325 PO PRN ×2 (05:10→13:11)
[2017-08-15] MEDS: MOTRIN PO PRN ×3 (05:10→19:18)
--- NOTE | 2017-08-15 09:09 | Progress Note ---
Assessment and Plan - Patient Problems (1) Delivery by emergency section Current Visit: Yes Status: Acute Plan to address problem: OOB to ambulate. Continue pain meds as needed. Advanced diet. (2) Placental abruption Current Visit: Yes Status: Acute Qualifiers: Trimester: T Plan to address problem: Delivered by emergency C/section. POD 2. (3) Anemia Onset Date: ~08/13/17 Current Visit: Yes Status: Acute Qualifiers: Anemia type: A Iron deficiency anemia type: I Vitamin B12 deficiency anemia type: V Folate deficiency anemia type: F Bone marrow failure anemia type: B Hemolytic anemia type: H Other causes of anemia: acute posthemorrhagic Chronic kidney disease stage: C Qualified Code(s): D62 - Acute posthemorrhagic anemia Plan to address problem: Pt was transfused 2 units of PRBC and is currently asymptomatic. Will continue iron sulfate Subjective - Subjective Date of service: 08/15/17 Principal diagnosis: SIUP at 27 weeks and 1 day in labor and vaginal bleeding Interval history: Patient is a 21-year-old who is S/P emergency C/section for placental abruption at 27 weeks. She denies any complaint. She has seen the baby and feels good about it. Physical Exam: Vitals:T98.6F, HR 62, RR 16, BP 97/61 HEENT: normal. Chest: CTA. Abdomen: soft, NT, incision clean dry, uterus firm. Ext: no edema, no calf TN, no Kevin's sign. Perineum: normal lochia. Labs: H/H: 8.7/25 post op. Assessment: 21 year old S/P emergency C/section at 27 weeks and 1 day gestation for placental abruption. POD#2, afebrile. She was transfused 2 units PRBC during the procedure. H/H stable. Plan: 1. OOB to ambulate. 2. Continue current care. Objective - Vital Signs Latest vital signs: Vital Signs Temp Pulse Resp BP 08/15/17 04:15 98.6 F 62 16 97/71 08/15/17 00:25 98.6 F 63 16 121/69 08/14/17 17:05 99.3 F 76 20 104/54 Intake and Output 08/14/17 08/15/17 08/15/17 23:59 07:59 15:59 Intake Total 360 550 Output Total 600 Balance -240 550 Intake: Oral 360 250 Intake, Free Water 300 Output: Urine 600 Void 600 Other: Total, Intake Amount 250 Total, Output Amount 600 # Voids Void 1 - Exam Cardiovascular: Present: Normal S1, Normal S2 Lungs: Present: Clear to auscultation Vulva: both: normal - Labs Labs: Abnormal lab results 08/13/17 Range/Units 07:30 Crossmatch See Detail
[2017-08-15] MEDS ORDERED: MILK OF MAGNESIA PO PRN (18:55)
[2017-08-16] MEDS: MOTRIN PO PRN ×2 (05:30→10:44)
[2017-08-16 09:30] VITALS: BP 100/66
--- NOTE | 2017-08-16 10:40 | Progress Note ---
Assessment and Plan A: POD #3 Asymptomatic Anemia P: Follow Routine Orders D/C home today RTO in One Week Subjective - Subjective Date of service: 08/16/17 Principal diagnosis: SIUP at 27 weeks and 1 day in labor and vaginal bleeding Patient reports: appetite normal, voiding normally, pain well controlled, flatus , ambulating normally [place]: in NICU Objective - Vital Signs Latest vital signs: Vital Signs Temp Pulse Resp BP BP BP Pulse Ox 08/16/17 08:04 97.8 F 71 18 100/66 08/16/17 00:00 98.6 F 66 16 101/77 08/15/17 16:39 98.1 F 75 18 108/71 98 Intake and Output 08/15/17 08/16/17 08/16/17 22:59 06:59 14:59 Intake Total 540 200 360 Balance 540 200 360 Intake: Oral 240 200 360 Intake, Free Water 300 Other: Total, Intake Amount 240 200 360 # Voids Void 1 1 1 - Exam Breasts: Present: normal Cardiovascular: Present: Regular rate Lungs: Present: Clear to auscultation, Normal air movement Abdomen: Present: normal appearance, soft, normal bowel sounds Uterus: Present: normal, firm, fundal height below umbilicus Extremities: Present: normal Incision: Present: normal, dry, intact - Labs Labs: Abnormal lab results 08/13/17 Range/Units 07:30 Crossmatch See Detail
--- NOTE | 2017-08-16 10:41 | Discharge Summary ---
Providers - Providers Date of Admission: 08/14/17 11:14 Date of discharge: 08/16/17 Attending physician: ROSEMARY COLVIN MD Primary care physician: ROSEMARY COLVIN MD Hospitalization Reason for admission: vaginal bleeding Delivery: Procedure: primary low transverse Episiotomy: none Laceration: none Incision: normal, dry, intact complications: none Discharge diagnosis: delivery Condition at discharge: Good Disposition: DC-01 TO HOME OR SELFCARE Plan - Provider Discharge Summary Activity: routine, no sex for 6 weeks, no heavy lifting 4 weeks, no strenuous exercise Diet: routine Instructions: routine Additional instructions: [] Smoking cessation referral if applicable(refer to patient education folder for contact #) [] Refer to [facility]'s [facility] Booklet Call your doctor immediately for: * Fever > 100.5 * Heavy vaginal bleeding ( >1 pad per hour) * Severe persistent headache * Shortness of breath * Reddened, hot, painful area to leg or breast * Drainage or odor from incision. * Keep incision clean and dry at all times and follow doctor's instructions regarding bathing/showering - Follow up plan Follow up: ROSEMARY COLVIN MD [Primary Care Provider] - 7 Days
[2017-08-16] MEDS: PERCOCET 5/325 PO PRN (10:44)
== END 2017-08-16 14:55 | disposition home or self-care (01) | DRG 765 ==
LOC: TRG 07:20 → LD 07:38 → TRG 07:38 → OB 21:55 → OBSVTOIN 08-14 11:14
PROVIDERS: ADMIT Obstetrics & Gynecology; ATTEND Obstetrics & Gynecology
PROC: 10D00Z1 Extraction of Products of Conception, Low, Open Approach (ICD-10-PCS; principal; 2017-08-13)
PROC: 30233N1 Transfusion of Nonautologous Red Blood Cells into Peripheral Vein, Percutaneous Approach (ICD-10-PCS; 2017-08-13)
DX: O45.92 Premature separation of placenta, unspecified, second trimester (principal); O60.12X0 Preterm labor second trimester with preterm delivery second trimester, not applicable or unspecified; O99.03 Anemia complicating the puerperium; D64.9 Anemia, unspecified; Z3A.27 27 weeks gestation of pregnancy; Z37.0 Single live birth
CPT/HCPCS: 36415; 76816; 76819; 80307; 81001; 82803; 83036; 83735; 85014; 85018; 85025; 85027; 85610; 85730; 86592; 86706; 86762; 86850; 86900; 86901; 86920; 87806; 88305; 99211; G0378; G0463; J0290; J0690; J1170; J1750; J2250; J2270; J2370; J2405; J2590; J2765; J3475; J7040; J7120; P9016

== ENCOUNTER 2020-10-30 13:41 | Emergency (ER) | payer SELFPAY ==
[2020-10-30 13:47] VITALS: BP 136/90
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
[2020-10-30 14:37] LABS: HCG Qualitative,Urine Negative (Negative)
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
== END 2020-10-30 16:32 | disposition home or self-care (01) ==
LOC: ED 13:41
DX: S46.819A Strain of other muscles, fascia and tendons at shoulder and upper arm level, unspecified arm, initial encounter (principal); Z79.899 Other long term (current) drug therapy; V49.49XA Driver injured in collision with other motor vehicles in traffic accident, initial encounter; Y93.89 Activity, other specified; Y92.488 Other paved roadways as the place of occurrence of the external cause; Y99.8 Other external cause status
CPT/HCPCS: 71046; 81025; 99283